=== PATIENT | female | born 1930 | race Caucasian/White ===

== ENCOUNTER 2017-11-29 13:04 | Observation (INO) | payer MEDICARE ==
[~2017-11-29] VITALS: Ht 170.2 cm; Wt 58.1 kg
[~2017-11-29 13:04] MED LIST: ASPIR-MOX 325325 M1 PO; ASPIRIN81 MG PO; BREO PO; DUONEB 0.5 MG-33 ML; HYDROCODON-ACE1 EACH PO; LEVAQUIN500 MG PO; LOSARTAN POTASS25 MG PO; LOSARTAN-HCTZ1 EAC2 PO; PANTOPRAZOLE SO40 MG PO; PROBIOTIC & AC1 EACH PO; TRAMADOL HCL50 MG PO; TYLENOL 4 PO; VITAMIN D1000 UNI1 PO; Z.0.ATENOLOL25 MG PO; Z.0.GABAPENTIN300 MG PO; Z.0.PLAVIX75 MG PO; Z.0.PRILOSEC OTC20 M PO; duoneb; nebulizer
[2017-11-29] MEDS ORDERED: ASPIRIN 81 MG CHEW TAB PO ONE ×2 (13:15→16:00)
[2017-11-29 13:38] LABS: BASOPHILS % 0.1 % (0.0-1.0); BILIRUBIN,URINE 1+ (NEGATIVE); COLOR,URINE YELLOW (YELLOW); HEMATOCRIT 32.3 % (34.2-44.1); HEMOGLOBIN 9.9 g/dL (12.0-16.0); KETONES,URINE NEGATIVE (NEGATIVE); LEUKOCYTE ESTERASE ,URINE TRACE (NEGATIVE); LYMPHOCYTES % 12.7 % (18.0-39.1); MEAN CORPUSCULAR HEMOGLOBIN 26.5 pg (28-32); MEAN CORPUSCULAR HGB CONC 30.7 g/dL (31-35); MEAN CORPUSCULAR VOLUME 86.4 fL (81-99); MONOCYTES # (AUTO) 1.4 (0.2-0.8); NEUTROPHILS # (AUTO) 12.1 (2.1-6.9); NEUTROPHILS % 77.8 % (38.7-80.0); NITRITE,URINE NEGATIVE (NEGATIVE); PLATELET COUNT 233 x10e3/uL (140-360); PROTEIN,URINE DIPSTICK NEGATIVE (NEGATIVE); RED BLOOD COUNT 3.74 x10e6/uL (3.6-5.1); RED CELL DISTRIBUTION WIDTH 12.8 % (11.7-14.4); URINE UROBILINOGEN 0.2 mg/dL (0.2 - 1)
[2017-11-29 13:39] LABS: CLARITY,URINE SL CLOUDY (CLEAR)
[2017-11-29 13:46] LABS: INR 1.15; PROTHROMBIN TIME 13.8 seconds (11.9-14.5)
[2017-11-29 13:47] LABS: PARTIAL THROMBOPLASTIN TIME 35.5 seconds (23.8-35.5)
[2017-11-29 13:52] LABS: BACTERIA,URINE FEW /HPF; EPITHELIAL CELLS,URINE MODERATE /LPF; WBC,URINE (MAN) 0-5 /HPF (0-5)
[2017-11-29 13:55] LABS: ALBUMIN 3.2 g/dL (3.5-5.0); ALBUMIN/GLOBULIN RATIO 0.8 (0.8-2.0); ANION GAP 16.5 mmol/L (8-16); CALCIUM 9.6 mg/dL (8.4-10.2); CREATININE, SERUM 2.08 mg/dL (0.57-1.11); POTASSIUM 4.5 mmol/L (3.5-5.1)
[2017-11-29 14:02] LABS: CREATINE KINASE MB 2.4 ng/mL (0-5.0)
--- NOTE | 2017-11-29 14:22 | Diagnostic Imaging Report ---
Exam: Head CT without contrast History: Possible possible stroke, left-sided paresis Comparison studies: Head CTs of 02/21/2016, in 01/13/2016. Technique: Axial images were obtained from the skull base to the vertex. Coronal and sagittal images reconstructed from the axial data. Intravenous contrast: None Findings: Scalp: No abnormalities. Bones: No fractures or aggressive lytic or blastic lesions. Nonaggressive-appearing 8 mm lytic lesion in the right parietal calvarium, possibly hemangioma. Brain sulci: Mildly prominent Ventricles: Mild compensatory dilatation. No hydrocephalus. Extra-axial spaces: No masses, no fluid collection. Parenchyma: No mass, acute hemorrhage or acute or chronic cortical vascular insults. A few scattered hypodensities in the supratentorial white matter are nonspecific but most compatible with chronic small vessel ischemic changes. Sellar/suprasellar region: No abnormalities. Craniocervical junction: Patent foramen magnum. No Chiari one malformation. Incidental findings: Atherosclerotic calcifications in the carotid siphons and intradural vertebral arteries. Bilateral lens replacements related to previous cataract surgery. Right middle turbinate nicholas bullosa, a normal anatomical variant. IMPRESSION: 1. No acute abnormalities. 2. Specifically, no mass, acute hemorrhage or acute cortical vascular insults. 3. Mild generalized volume loss and chronic microvascular ischemic changes. 4. No changes from the previous head CT of 02/21/2016. If there remains persistent concern for acute ischemia, brain MRI may further evaluate. Signed by: Dr. Patricio Ramos M.D. on 11/29/2017 2:18 PM
--- NOTE | 2017-11-29 14:34 | Diagnostic Imaging Report ---
EXAMINATION: CHEST SINGLE (PORTABLE) INDICATION: \S\SOB \S\[id number] \S\1400 \S\Y COMPARISON: 02/22/2016 FINDINGS: AP view TUBES and LINES: None. LUNGS: Lungs are well inflated. Biapical scarring. Central vascular congestion and mild interstitial edema. PLEURA: No pleural effusion or pneumothorax. HEART AND MEDIASTINUM: The cardiomediastinal silhouette is unremarkable. Aorta is calcified and tortuous. BONES AND SOFT TISSUES: No acute osseous lesion. Soft tissues are unremarkable. UPPER ABDOMEN: No free air under the diaphragm. IMPRESSION: Central vascular congestion and mild interstitial edema. Mildly increased bilateral upper lung field haziness, probably scarring. Signed by: Dr. Fili Henley MD on 11/29/2017 2:31 PM
--- NOTE | 2017-11-29 14:50 | Diagnostic Imaging Report ---
HIP LEFT 2-3 VW (+/- PELVIS) - 3 views HISTORY: Pain COMPARISON: None available. FINDINGS: Generalized demineralization limits evaluation. No definite evidence of acute displaced fracture or dislocation of the left hip. Degenerative changes of the left hip. Questionable old fracture deformity of the left inferior pubic ramus. Right hip arthroplasty. IMPRESSION: No definite evidence of acute displaced fracture or dislocation of the left hip. If there is high clinical concern for fracture, consider obtaining CT for better evaluation. Advanced degenerative changes. Right hip arthroplasty. Signed by: Dr. Fili Henley MD on 11/29/2017 2:47 PM
[2017-11-29] MEDS ORDERED: ONDANSETRON HCL INJ 2 MG/ML VIAL IV PRN (16:00)
--- OUTSIDE RECORDS SUMMARY | 2017-11-29 16:11 | XMS REPORT ---
Author Author [facility] Address Unknown Phone Unavailable Care Team Providers Care Core Fitter Name Role Phone EMILY GOMEZ Unavailable Unavailable Problems This patient has no known problems. Allergies, Adverse Reactions, Alerts This patient has no known allergies or adverse reactions. Medications This patient has no known medications. Results Test Description Test Time Test Comments Text Results Atomic Results Result Comments HIP LEFT 2-3 VW (+/- PELVIS) [place] [address] Patient Name: MERLE RIVERA MR #: [id number] : 1930 Age/Sex: 87/F Req #: [id number] Adm Physician: Ordered by: EMILY GOMEZ MD Report #: [id number] Location: ER Room/Bed: Procedure: [id number] DX/HIP LEFT 2-3 VW (+/- PELVIS) Exam Date: Exam Time: REPORT STATUS: Signed HIP LEFT 2-3 VW (+/- PELVIS) - 3 views HISTORY: Pain COMPARISON: None available. FINDINGS: Generalized demineralization limits evaluation. No definite evidence of acute displaced fracture or dislocation of the left hip. Degenerative changes of the left hip. Questionable old fracture deformity of the left inferior pubic ramus. Right hip arthroplasty. IMPRESSION: No definite evidence of acute displaced fracture or dislocation of the left hip. If there is high clinical concern for fracture, consider obtaining CT for better evaluation. Advanced degenerative changes. Right hip arthroplasty. Signed by: Dr. Fili Ball MD on 11/29/2017 2:47 PM Dictated By: FILI BALL MD 46 Transcribed By: CARLOZ on 11/29/171446 COPY TO: EMILY GOMEZ MD CT BRAIN WO [place] [address] Patient Name: MERLE RIVERA MR #: [id number] : 1930 Age/Sex: 87/F Req # : [id number] Adm Physician: Ordered by: EMILY GOMEZ MD Report #: [id number] Location: Room/Bed: Procedure: [id number] CT/CT BRAIN WO Exam Date: Exam Time: REPORT STATUS: Signed Exam: Head CT without contrast History: Possible possible stroke, left-sided paresis Comparison studies: Head CTs of 02/21/2016, in 2015. Technique: Axial images were obtained from the skull base to the vertex. Coronal and sagittal images reconstructed from the axial data. Intravenous contrast: None Findings: Scalp: No abnormalities. Bones : No fractures or aggressive lytic or blastic lesions. Nonaggressive- appearing 8 mm lytic lesion in the right parietal calvarium, possibly hemangioma. Brain sulci: Mildly prominent Ventricles: Mild compensatory dilatation. No hydrocephalus. Extra-axial spaces: No masses, no fluid collection. Parenchyma: No mass, acute hemorrhage or acute or chronic cortical vascular insults. A few scattered hypodensities in the supratentorial white matter are nonspecific but most compatible with chronic small vessel ischemic changes. Sellar/suprasellar region: No abnormalities. Craniocervical junction: Patent foramen magnum. No Chiari one malformation. Incidental findings: Atherosclerotic calcifications in the carotid siphons and intradural vertebral arteries. Bilateral lens replacements related to previous cataract surgery. Right middle turbinate nicholas bullosa, a normal anatomical variant. IMPRESSION: 1. No acute abnormalities. 2. Specifically, no mass, acute hemorrhage or acute cortical vascular insults. 3. Mild generalized volume loss and chronic microvascular ischemic changes. 4. No changes from the previous head CT of 02/21/2016. If there remains persistent concern for acute ischemia, brain MRI may further evaluate. Signed by: Dr. Wan Ramos M.D. on 11/29/2017 2:18 PM Dictated By: WAN RAMOS MD 1418 Transcribed By: CARLOZ on 11/29/17 1418 COPY TO: EMILY GOMEZ MD CHEST SINGLE (PORTABLE) [place] [address] Patient Name: MERLE RIVERA MR #: [id number] : 1930 Age/Sex: 87/F Req #: [id number] Adm Physician: Ordered by: EMILY GOMEZ MD Report #: [id number] Location: ER Room/Bed: Procedure: [id number] DX/CHEST SINGLE (PORTABLE) Exam Date: 11/29/17 Exam Time: 1400 REPORT STATUS: Signed EXAMINATION: CHEST SINGLE (PORTABLE) INDICATION: COMPARISON: 02/22/2016 FINDINGS: AP view TUBES and LINES: None. LUNGS: Lungs are well inflated. Biapical scarring. Central vascular congestion and mild interstitial edema. PLEURA: No pleural effusion or pneumothorax. HEART AND MEDIASTINUM: The cardiomediastinal silhouette is unremarkable. Aorta is calcified and tortuous. BONES AND SOFT TISSUES : No acute osseous lesion. Soft tissues are unremarkable. UPPER ABDOMEN : No free air under the diaphragm. IMPRESSION: Central vascular congestion and mild interstitial edema. Mildly increased bilateral upper lung field haziness, probably scarring. Signed by: Dr. Fili Ball MD on 2:31 PM Dictated By: FILI BALL MD 1431 Transcribed By: CARLOZ on 11/29/17 1431 COPY TO: EMILY GOMEZ MD
[2017-11-29 16:52] VITALS: BP 140/66
[2017-11-29 17:00] VITALS: BP 140/66
[2017-11-29] MEDS ORDERED: ASPIRIN81 MG PO (17:40)
[2017-11-29] MEDS ORDERED: HYDROCHLOROTH12.5 M1 PO (17:40)
[2017-11-29] MEDS ORDERED: HYDRALAZINE HCL 20 MG/ML VIAL IV PRN (18:00)
[2017-11-29] MEDS: SODIUM CHLORIDE 0.9% 1000ML 1,000 ML IV SCH ×2 (18:16→20:42)
--- NOTE | 2017-11-29 19:16 | Diagnostic Imaging Report ---
EXAM: Renal Ultrasound INDICATION: \S\ACOSTA \S\N COMPARISON: None TECHNIQUE: Transverse and longitudinal images of the kidneys and bladder were obtained. FINDINGS: Right Kidney: Size: 9.7 cm Echogenicity: Increased Parenchymal thickness: Normal Collecting system: No hydronephrosis Stones: None Cyst/Mass: None Left Kidney: Size: 10.1 cm Echogenicity: Increased Parenchymal thickness: Normal Collecting system: No hydronephrosis Stones: None Cyst/Mass: None Bladder: Decompressed by Torres catheter in place. IMPRESSION: Increased renal parenchymal echogenicity, suggestive of medical renal disease. Otherwise, unremarkable. Signed by: Dr. Fili Henley MD on 11/29/2017 7:12 PM
[2017-11-29 20:00] VITALS: BP 140/66
[2017-11-29 20:10] VITALS: BP 126/59
[2017-11-29] MEDS: ATENOLOL 50 MG TAB PO SCH (20:40)
[2017-11-29] MEDS ORDERED: ACETAMINOPHEN/CODEINE 300MG - 30MG TAB PO PRN (21:00)
[2017-11-30] VITALS (8 sets, daily range): BP systolic 113–167; BP diastolic 58–77
[2017-11-30 00:53] LABS: CREATINE KINASE MB 1.6 ng/mL (0-5.0)
[2017-11-30 06:12] LABS: BASOPHILS % 0.2 % (0.0-1.0); EOSINOPHILS # (AUTO) 0.1 (0.0-0.4); EOSINOPHILS % 0.8 % (0.0-6.0); HEMATOCRIT 27.7 % (34.2-44.1); HEMOGLOBIN 8.7 g/dL (12.0-16.0); LYMPHOCYTES # (AUTO) 1.3 (1.0-3.2); MEAN CORPUSCULAR HEMOGLOBIN 26.9 pg (28-32); MEAN CORPUSCULAR HGB CONC 31.4 g/dL (31-35); MEAN CORPUSCULAR VOLUME 85.8 fL (81-99); MONOCYTES % 9.9 % (4.4-11.3); NEUTROPHILS # (AUTO) 7.6 (2.1-6.9); NEUTROPHILS % 75.8 % (38.7-80.0); PLATELET COUNT 164 x10e3/uL (140-360); RED BLOOD COUNT 3.23 x10e6/uL (3.6-5.1); RED CELL DISTRIBUTION WIDTH 12.6 % (11.7-14.4)
[2017-11-30 06:34] LABS: ANION GAP 11.2 mmol/L (8-16); CALCIUM 9.1 mg/dL (8.4-10.2); CHOL/HDL RATIO 2.4 (3.0-3.6); CREATININE, SERUM 1.01 mg/dL (0.57-1.11); POTASSIUM 4.2 mmol/L (3.5-5.1)
[2017-11-30 06:54] LABS: CREATINE KINASE MB 1.5 ng/mL (0-5.0)
[2017-11-30] MEDS: ACETAMINOPHEN/CODEINE 300MG - 30MG TAB PO SCH ×2 (07:33→20:38)
[2017-11-30] MEDS: LOSARTAN POTASSIUM 25 MG TAB PO SCH (08:49)
[2017-11-30] MEDS: SODIUM CHLORIDE 0.9% 1000ML 1,000 ML IV SCH (08:49)
[2017-11-30] MEDS: ASPIRIN 81 MG ENTERIC COATED PO SCH (08:49)
[2017-11-30] MEDS: LACTOBACILLUS ACIDOPHILUS CAPSULE PO SCH (08:49)
[2017-11-30] MEDS: CLOPIDOGREL BISULFATE 75 MG TAB PO SCH (08:49)
[2017-11-30] MEDS: PANTOPRAZOLE SOD 40 MG TABEC PO SCH (08:50)
[2017-11-30] MEDS: GABAPENTIN 300 MG CAP PO SCH ×3 (13:03→20:37)
--- NOTE | 2017-11-30 13:07 | History and Physical ---
CHIEF COMPLAINT: Lightheadedness, dizziness, fall. HPI: This is an 87-year-old female with history of peripheral neuropathy, taking gabapentin, who complained of diarrhea for the last 1 day. The patient reports she went to the bathroom yesterday and had several bouts of diarrhea, nonbloody, nonfoul-smelling. When she got up from the toilet, she got very lightheaded and fell over. The patient also reports that her primary care physician recently started her on some oral Lasix due to ankle swelling. Of note, she also endorses that she does not drink enough fluids at home. The patient reports that she got lightheaded when this occurred and fell on her left elbow and hip area. All imaging studies have been found to be negative. The patient is currently doing well with no other complaints. She denies any chest pain, palpitations, any history of seizures or any loss of consciousness. The patient was seen and evaluated at bedside on the medical floor, currently doing well with no other complaints. REVIEW OF SYSTEMS: Pertinent positives: Lightheadedness, dizziness, fall. Pertinent negatives: Denies any chest pain, palpitations, nausea, vomiting, diarrhea, dysuria, hematuria, frequency, urgency, abdominal pain, headache, shortness of breath, or any other complaints. The rest of the 14-point review of systems have been reviewed with the patient and are negative. ALLERGIES: NO KNOWN DRUG ALLERGIES. HOME MEDICATIONS 1. Aspirin 81 mg daily. 2. Gabapentin 300 mg p.o. q.i.d. 3. Hydrochlorothiazide. PAST MEDICAL HISTORY: Peripheral neuropathy, hypertension, generalized weakness. PAST SURGICAL HISTORY: None. FAMILY HISTORY: Hypertension, diabetes. SOCIAL HISTORY: She lives with family. Denies drugs, alcohol or any smoking history. VITAL SIGNS: Temperature is 97.8, pulse 71, respiratory rate 16, blood pressure 129/58, pulse ox 98% on room air. LAB FINDINGS: White count 10, hemoglobin 8.7, hematocrit 27, platelets 164. Coagulations are normal. Chemistries: Sodium 138, potassium 4.2, chloride 101, bicarb 30, anion gap 11, BUN 23, creatinine 1.0. On admission it was 2.0. Glucose 86, calcium 9.1. LFTs are normal. Troponins were negative times 3. Albumin was 3.2, LDL 64. Urinalysis was negative. MICROBIOLOGY: None. IMAGING STUDIES: Renal ultrasound showed some increased renal parenchymal echogenicity. Right kidney is 9.7 cm, and the left kidney is 10.1 cm. Chest x-ray showed some central vascular congestion and mild interstitial edema. CT brain: No acute abnormality. Specifically, no mass, acute hemorrhage or acute cortical vascular insults. Otherwise, negative CT brain. Hip x-ray: No definite evidence of acute displaced fracture or dislocation of the left hip. PHYSICAL EXAMINATION GENERAL: No acute distress. Alert and oriented times 3. Cooperative on exam. HEENT: Head is normocephalic and atraumatic. Eyes: Pupils are equal, round and reactive to light bilaterally. The extraocular movements are intact bilaterally. NECK: Supple with good range of motion. Throat: No evidence of any erythema or exudate. The posterior pharynx has poor dentition. PULMONARY: Clear to auscultation bilaterally. No wheezing, no rales, no rhonchi. No crackles appreciated. CARDIOVASCULAR: Positive S1 and S2. No murmurs, rubs or gallops appreciated. ABDOMEN: Soft, nondistended and nontender to palpation. Bowel sounds are present. MUSCULOSKELETAL: Strength bilaterally 5/5 throughout. No evidence of any musculoskeletal deficit on examination. No weakness appreciated. NEUROLOGIC: Cranial nerves II through XII were grossly intact. No evidence of any neurological deficit on exam. SKIN: Intact. Warm to touch. Good capillary refill. PSYCHIATRIC: Normal affect and mood. EXTREMITIES: No edema. Good range of motion throughout. IMPRESSION 1. Syncopal episode, likely secondary to dehydration. 2. Acute kidney injury secondary to prerenal azotemia from dehydration. 3. Dehydration due to decreased oral intake and thiazide diuretic. 4. Hyponatremia. 5. Peripheral neuropathy. PLAN: At this time, her CT brain was negative. All imaging studies were found to be negative at this time. The patient clearly describes having hypovolemia due to diarrhea and thiazide diuretic. Also, was taking Lasix at home, likely leading to her underlying volume depletion and syncopal fall. Currently, she denies any lightheadedness or dizziness and feels great with no other issues. We will get an MRI of the brain at this time. Will continue with low-dose IV fluids at this time. Her creatinine did improve after fluid hydration. Sodium improved as well. Has negative troponins. Will get PT and OT eval. Monitor very closely. Will continue with gabapentin at the same dose. Also, gabapentin could be playing a role in her dizziness as she had prerenal azotemia with elevated creatinine likely leading to her syncopal fall as well. At this time, we will continue to follow and will order labs in the morning. Once everything has been cleared, likely discharge home tomorrow once MRI has been performed and is negative. Job#: [id number]
[2017-11-30] MEDS: ATENOLOL 50 MG TAB PO SCH (20:37)
[2017-12-01] VITALS: BP 143/65
[2017-12-01 04:00] VITALS: BP 171/74
[2017-12-01] MEDS: SODIUM CHLORIDE 0.9% 1000ML 1,000 ML IV SCH (05:44)
[2017-12-01 06:40] LABS: BASOPHILS % 0.2 % (0.0-1.0); EOSINOPHILS % 0.4 % (0.0-6.0); HEMATOCRIT 29.1 % (34.2-44.1); MEAN CORPUSCULAR HEMOGLOBIN 26.5 pg (28-32); MEAN CORPUSCULAR HGB CONC 30.9 g/dL (31-35); MEAN CORPUSCULAR VOLUME 85.6 fL (81-99); MONOCYTES # (AUTO) 0.9 (0.2-0.8); MONOCYTES % 8.9 % (4.4-11.3); NEUTROPHILS # (AUTO) 7.8 (2.1-6.9); NEUTROPHILS % 80.1 % (38.7-80.0); PLATELET COUNT 195 x10e3/uL (140-360); RED CELL DISTRIBUTION WIDTH 12.5 % (11.7-14.4)
[2017-12-01 06:59] LABS: ANION GAP 11.3 mmol/L (8-16); BLOOD UREA NITROGEN 14 mg/dL (7-26); BUN/CREATININE RATIO 18 (6-25); CALCIUM 9.2 mg/dL (8.4-10.2); CARBON DIOXIDE 29 mmol/L (22-29); CHLORIDE 102 mmol/L (98-107); CREATININE, SERUM 0.78 mg/dL (0.57-1.11); EST GLOMERULAR FILTRATION RATE > 60 ML/MIN (60-); GLUCOSE 113 mg/dL (74-118); POTASSIUM 4.3 mmol/L (3.5-5.1); SODIUM 138 mmol/L (136-145)
[2017-12-01 08:07] VITALS: BP 178/77
[2017-12-01] MEDS: PANTOPRAZOLE SOD 40 MG TABEC PO SCH (08:22)
[2017-12-01] MEDS: ASPIRIN 81 MG ENTERIC COATED PO SCH (08:23)
[2017-12-01] MEDS: ACETAMINOPHEN/CODEINE 300MG - 30MG TAB PO SCH (08:23)
[2017-12-01] MEDS: CLOPIDOGREL BISULFATE 75 MG TAB PO SCH (08:23)
[2017-12-01] MEDS: GABAPENTIN 300 MG CAP PO SCH ×2 (08:23→12:10)
[2017-12-01] MEDS: LOSARTAN POTASSIUM 25 MG TAB PO SCH (08:23)
[2017-12-01] MEDS: LACTOBACILLUS ACIDOPHILUS CAPSULE PO SCH (08:23)
[2017-12-01] MEDS ORDERED: ASPIRIN 81 MG CHEW TAB PO SCH (09:00)
[2017-12-01] MEDS ORDERED: LOSARTAN POTASSIUM 100 MG TAB PO ONE (11:15)
[2017-12-01] MEDS ORDERED: LOSARTAN POTASSIUM 100 MG TAB PO SCH (11:17)
[2017-12-01 12:00] VITALS: BP 176/74
--- NOTE | 2017-12-01 12:37 | Discharge Summary ---
DATE OF : 1930 FINAL DISCHARGE DIAGNOSES 1. Syncope likely secondary to dehydration from diarrhea, decreased oral intake, and diuretic usage. 2. Acute kidney injury secondary to prerenal azotemic from dehydration. 3. Mild hyponatremia - resolved. 4. Peripheral neuropathy. CONSULTANTS: None. VITAL SIGNS: Temperature is 97.2, pulse 70, respiratory rate is 16, blood pressure 143/65, and pulse ox is 98%. LAB FINDINGS: Show white count 9.6, hemoglobin 9, hematocrit is 29, platelets of 195. Coagulation was normal. Chemistries; sodium 138, potassium 4.3, chloride 102, bicarb 20, anion gap of 11, BUN is 14. Creatinine on admission was 2.0, then 1.0, then 0.78. Glucose is 113. LFTs were normal. Patient's troponin was negative times 3. Albumin was 3.2. LDL was 64. Urinalysis was negative. MICROBIOLOGY: None. IMAGING STUDIES: Renal ultrasound was performed, which showed some medical renal disease. No other findings seen. No obstruction or hydronephrosis. Chest x-ray shows some central vascular congestion with mild interstitial edema. CT brain showed no acute abnormality, was a negative CT of the head. Hip x-ray showed no definite evidence of acute displaced fracture or dislocation of the left hip. HOSPITAL COURSE: This is an 87-year-old female who came into the ED after having a syncopal episode at home. Patient reports she was in the bathroom on the toilet, having several bouts of diarrhea and when she stood up she got lightheaded and fell over on her left hip. Patient was brought in via EMS. Imaging studies were negative for any hip fracture. CT brain was negative as well. On further review, the patient has been taking an oral diuretic as well as decreased oral fluid intake as well as diarrhea likely led to her underlying syncopal episode. She was found to be dehydrated on examination. She did have acute kidney injury with a creatinine of 2, which trended down to normal at 0.78 prior to discharge home. Patient was admitted and started on IV fluids. Patient refused MRI of the brain and I discussed the reasoning for MRI of the brain, risks and benefits. Patient still refuses MRI of the brain at this time. Patient was back to normal baseline with no other issues. There is no focal neurological deficit on exam. She worked with PT and OT, did very well. She does have a home walker. On discharge, vital signs stable. Labs reviewed and stable. Patient was seen, evaluated, and examined thoroughly on the day of discharge. No other complaints. Patient verbalized understanding and agrees to plan of care to follow up accordingly with her primary care physician in 1 week. I also discussed with the family about drinking more fluids at home as she does not drink enough and also, I discussed with them to use the Lasix as needed when she notices lower extremity edema. They verbalized understanding and agreed with plan of care. MEDICATIONS: See med reconciliation form including Cipro 500 mg p.o. b.i.d. times 3 days for possible underlying UTI. DISPOSITION: To home. CONDITION: Stable. DIET: Heart-healthy. FOLLOWUP: With her primary care physician in 1 week for post-hospital followup. In the event of any worsening symptoms, the patient advised to come back to the ED for further evaluation. Discharge summary took greater than 35 minutes. TM WOLFE MD Job#: [id number] PAT
== END 2017-12-01 12:23 | disposition home or self-care (01) ==
LOC: ER 13:04 → ERHOLD 16:07 → IMCU 16:10
PROVIDERS: ADMIT Internal Medicine; ATTEND Internal Medicine
DX: R55 Syncope and collapse (principal); N17.9 Acute kidney failure, unspecified; D72.829 Elevated white blood cell count, unspecified; Z91.81 History of falling; E86.0 Dehydration; E87.1 Hypo-osmolality and hyponatremia; G62.9 Polyneuropathy, unspecified; R19.7 Diarrhea, unspecified; W18.39XA Other fall on same level, initial encounter; Y93.89 Activity, other specified; Y92.012 Bathroom of single-family (private) house as the place of occurrence of the external cause
CPT/HCPCS: 36415; 51700; 70450; 71045; 76770; 80048; 80053; 80061; 81001; 82550; 82553; 83880; 84484; 85025; 85610; 85730; 93005; 93880; G0378; J7030

== ENCOUNTER 2017-12-13 09:01 | Inpatient (IN) | payer MEDICARE ==
[~2017-12-13] VITALS: Ht 170.2 cm; Wt 59.9 kg
[~2017-12-13 09:01] MED LIST changes: +HYDROCHLOROTH12.5 M1 PO
--- OUTSIDE RECORDS SUMMARY | 2017-12-13 09:04 | XMS REPORT | Continuity of Care Document ---
Author Author [facility] Organization [facility] Address [address] [place] [address] Phone Unavailable Care Team Providers Care Poultry Offal Icer Name Role Phone AMAURI ORTEGA MD PCP Insurance Providers Guarantor ConnerSelene cash Address [address] [place] [address] Email PTDECLINED Payer [facility] [employer] Policy Number [id number] Subscriber's Name Selene Conner Relationship 18 Self / Same As Patient Group Number [id number] Group Name RETIRED Effective Date 15 Expiration Date 78 Advance Directives Directive Response Recorded Date/Time Does the patient have an advance directive? No 11/29/17 4:52pm If yes, is advance directive on file with [facility]? No 11/29/17 4:52pm If not on file with [facility] will patient provide a copy? No 11/29/17 4:52pm Do you have a Directive to Physician? No 11/29/17 3:55pm Do you have a Medical Power of [place]ess[place] Cleaner? No 11/29/17 3:55pm Do you have an out of hospital Do Not Resuscitate Order? No 11/29/17 3:55pm Do you have any special needs we should be aware of? No 11/29/17 3:55pm Do you have a support person here with you today? Yes 11/29/17 3:55pm Did patient receive Notice of Privacy Practices? Yes 11/29/17 3:55pm Did patient receive patient rights and responsibilities? Yes 11/29/17 3:55pm Problems Medical Problem Onset Date Status Elevation of cardiac enzymes 02/21/2016 Acute Hyponatremia 02/21/2016 Acute Weakness 02/21/2016 Acute Medications Current Home Medications Medication Dose Units Route Directions Days Qty Instructions Start Date Aspirin 81 Mg Tab.chew 1 Tab Oral Daily Atenolol 25 Mg Tablet 50 Mg Oral Daily Gabapentin 300 Mg Capsule 300 Mg Oral Four Times Daily Hydrochlorothiazide 12.5 Mg Capsule 1 Cap Oral Daily Lactobac Cmb #3/Fos/Pantethine (Probiotic & Acidophilus Cap) 1 Each Capsule 1 Tab Oral Daily Losartan Potassium 25 Mg Tablet 50 Mg Oral Daily Pantoprazole Sodium (Protonix) 40 Mg Tablet.dr 40 Mg Oral Daily Tylenol 4 1 1 Tab Oral Twice A Day Past Home Medications Medication Directions Ordered Status Albuterol/Ipratropium (Duoneb 0.5 Mg-3 Mg/3 Ml Soln) 3 Ml Inha, Discontinued Aspirin 81 Mg Tab.chew, 81 Mg Oral Daily Discontinued Aspirin/Calcium Carbonate/Mag (Aspir-Mox 325 Mg Tablet) 325 Mg Tablet, 325 Mg Oral Discontinued Breo , 2 Tab Oral Daily Discontinued Cholecalciferol (Vitamin D3) (Vitamin D) 1,000 Unit Tablet, 300 Unit Oral Daily Discontinued Clopidogrel Bisulfate (Plavix) 75 Mg Tablet, 75 Mg Oral Discontinued Duoneb , Discontinued Hydrocodone Bit/Acetaminophen (Hydrocodon-Acetaminophen 5-500) 1 Each Capsule, 5 - 500 Mg Oral Every 4 Hours as needed Discontinued Levofloxacin (Levaquin) 500 Mg Tablet, 500 Mg Oral Daily Discontinued Losartan/Hydrochlorothiazide (Losartan-Hctz 100-12.5 Mg Tab) 1 Each Tablet, 1 Oral Daily Discontinued Nebulizer , Discontinued Omeprazole Magnesium (Prilosec Otc) 20 Mg Tablet.dr, 20 Mg Oral Daily Discontinued Tramadol Hcl 50 Mg Tablet, 50 Mg Oral 1-2 Times Daily Discontinued Social History Social History Problem Response Recorded Date/Time Onset Date Status Hx Psychiatric Problems No 11/29/2017 4:52pm Not Applicable Not Applicable Hx Eating Disorder No 11/29/2017 4:52pm Not Applicable Not Applicable Hx Substance Use Disorder No 11/29/2017 4:52pm Not Applicable Not Applicable Hx Depression No 11/29/2017 4:52pm Not Applicable Not Applicable Hx Alcohol Use No 11/29/2017 4:52pm Not Applicable Not Applicable Hx Substance Use Treatment No 11/29/2017 4:52pm Not Applicable Not Applicable Hx Physical Abuse No 11/29/2017 4:52pm Not Applicable Not Applicable Smoking Status Start Date Stop Date Former smoker Hospital Discharge Instructions No hospital discharge instruction information available. Plan of Care Discharge Date 12/01/17 12:23pm Disposition HOME, SELF-CARE Instructions/Education Provided Dehydration - Adult Prescriptions See Medication Section Additional Instructions/Education Follow-up with primary care provider next week. Functional Status Query Response Date Recorded Assistive Devices None November 29, 2017 5:00pm Ambulation Ability Standby Assistance November 29, 2017 5:00pm Toileting Ability Minimum Assistance December 01, 2017 8:54am Allergies, Adverse Reactions, Alerts No known allergies. Immunizations No immunization information available. Vital Signs Acute Vital Signs Vital Response Date/Time Temperature (Fahrenheit) 96.8 degrees F (97.6 - 99.5) 12/01/2017 12:00pm Pulse Pulse Rate (adult) 70 bpm (60 - 90) 12/01/2017 12:00pm Respiratory Rate 16 bpm (12 - 24) 12/01/2017 12:00pm Blood Pressure 176/74 mm Hg 12/01/2017 12:00pm Height 5 ft 7 in 11/29/2017 1:15pm Weight 128 lb 11/29/2017 4:52pm Body Mass Index 20.0 kg/m^2 11/29/2017 4:52pm Results Laboratory Results Test Name Result Units Flags Reference Collection Date/Time Result Date/ Time Comments White Blood Count 9.68 x10e3/uL 4.8-10.8 12/01/2017 6:15am 12/01/2017 6 :50am Red Blood Count 3.40 x10e6/uL L 3.6-5.1 12/01/2017 6:15am 12/01/2017 6: 50am Hemoglobin 9.0 g/dL L 12.0-16.0 12/01/2017 6:1512/01/2017 6:50am Hematocrit 29.1 % L 34.2-44.1 12/01/2017 6:1512/01/2017 6:50am Mean Corpuscular Volume 85.6 fL 81-99 12/01/2017 6:1512/01/2017 6: 50am Mean Corpuscular Hemoglobin 26.5 pg L 28-32 12/01/2017 6:152017 6:50am Mean Corpuscular Hemoglobin Concent 30.9 g/dL L 31-35 12/01/2017 6:1512/01/2017 6:50am Red Cell Distribution Width 12.5 % 11.7-14.4 12/01/2017 6:152017 6:50am Platelet Count 195 x10e3/uL 140-360 12/01/2017 6:1512/01/2017 6: 50am Neutrophils (%) (Auto) 80.1 % H 38.7-80.0 12/01/2017 6:1512/01/2017 6 :50am Lymphocytes (%) (Auto) 10.0 % L 18.0-39.1 12/01/2017 6:1512/01/2017 6 :50am Monocytes (%) (Auto) 8.9 % 4.4-11.3 12/01/2017 6:1512/01/2017 6: 50am Eosinophils (%) (Auto) 0.4 % 0.0-6.0 12/01/2017 6:1512/01/2017 6: 50am Basophils (%) (Auto) 0.2 % 0.0-1.0 12/01/2017 6:1512/01/2017 6:50am IM GRANULOCYTES % 0.4 % 0.0-1.0 12/01/2017 6:1512/01/2017 6:50am Neutrophils # (Auto) 7.8 H 2.1-6.9 12/01/2017 6:1512/01/2017 6: 50am Lymphocytes # (Auto) 1.0 1.0-3.2 12/01/2017 6:1512/01/2017 6:50am Monocytes # (Auto) 0.9 H 0.2-0.8 12/01/2017 6:15am 12/01/2017 6:50am Eosinophils # (Auto) 0.0 0.0-0.4 12/01/2017 6:15am 12/01/2017 6:50am Basophils # (Auto) 0.0 0.0-0.1 12/01/2017 6:15am 12/01/2017 6:50am Absolute Immature Granulocyte (auto 0.04 x10e3/uL 0-0.1 12/01/2017 6: 15am 12/01/2017 6:50am Prothrombin Time 13.8 seconds 11.9-14.5 11/29/2017 1:30pm 11/29/2017 1: 47pm Prothromb Time International Ratio 1.15 11/29/2017 1:30pm 2017 1:47pm Oral Anticoagulant Therapy INR Values: 1. Low Intensity Therapy 1.5 - 2.0 2. Moderate Intensity Therapy 2.0 - 3.0 3. High Intensity Therapy(1) 2.5 - 3.5 4. High Intensity Therapy(2) 3.0 - 4.0 5. Panic Value INR > 5.0 Activated Partial Thromboplast Time 35.5 seconds 23.8-35.5 11/29/2017 1: 30pm 11/29/2017 1:47pm Urine Color YELLOW YELLOW 11/29/2017 1:30pm 11/29/2017 1:39pm Urine Clarity SL CLOUDY CLEAR 11/29/2017 1:30pm 11/29/2017 1:39pm Urine Specific [place] 1.025 1.010-1.025 11/29/2017 1:30pm 2017 1:39pm Urine pH 5 5 - 7 11/29/2017 1:30pm 11/29/2017 1:39pm Urine Leukocyte Esterase TRACE H NEGATIVE 11/29/2017 1:30pm 2017 1:39pm Urine Nitrite NEGATIVE NEGATIVE 11/29/2017 1:30pm 11/29/2017 1:39pm Urine Protein NEGATIVE NEGATIVE 11/29/2017 1:30pm 11/29/2017 1:39pm Urine Glucose (UA) NEGATIVE NEGATIVE 11/29/2017 1:30pm 11/29/2017 1: 39pm Urine Ketones NEGATIVE NEGATIVE 11/29/2017 1:30pm 11/29/2017 1:39pm Urine Urobilinogen 0.2 mg/dL 0.2 - 1 11/29/2017 1:30pm 11/29/2017 1: 39pm Urine Bilirubin 1+ H NEGATIVE 11/29/2017 1:30pm 11/29/2017 1:39pm Urine Blood NEGATIVE NEGATIVE 11/29/2017 1:30pm 11/29/2017 1:39pm Urine WBC 0-5 /HPF 0-5 11/29/2017 1:30pm 11/29/2017 1:52pm Urine RBC NONE /HPF 0-5 11/29/2017 1:30pm 11/29/2017 1:52pm Urine Bacteria FEW /HPF NONE 11/29/2017 1:30pm 11/29/2017 1:52pm Urine Epithelial Cells MODERATE /LPF NONE 11/29/2017 1:30pm 11/29/2017 1:52pm Sodium Level 138 mmol/L 136-145 12/01/2017 6:15am 12/01/2017 7:16am Potassium Level 4.3 mmol/L 3.5-5.1 12/01/2017 6:15am 12/01/2017 7:16am Chloride Level 102 mmol/L 98-107 12/01/2017 6:15am 12/01/2017 7:16am Carbon Dioxide Level 29 mmol/L 22-29 12/01/2017 6:15am 12/01/2017 7: 16am Anion Gap 11.3 mmol/L 8-16 12/01/2017 6:15am 12/01/2017 7:16am Blood Urea Nitrogen 14 mg/dL 7-26 12/01/2017 6:15am 12/01/2017 7:16am Creatinine 0.78 mg/dL 0.57-1.11 12/01/2017 6:15am 12/01/2017 7:16am BUN/Creatinine Ratio 18 6-25 12/01/2017 6:15am 12/01/2017 7:16am Estimat Glomerular Filtration Rate > 60 ML/MIN 60- 12/01/2017 6:15am 7:16am Ranges were taken from the National Kidney Disease Education Program and the National Kid[employer] Foundation literature. Reference ranges: 60 or greater: Normal 16-59 (for 3 consecutive months): Chronic kidney disease 15 or less: Kidney failure Glucose Level 113 mg/dL 74-118 12/01/2017 6:15am 12/01/2017 7:16am Calcium Level 9.2 mg/dL 8.4-10.2 12/01/2017 6:15am 12/01/2017 7:16am Total Bilirubin 0.8 mg/dL 0.2-1.2 11/29/2017 1:30pm 11/29/2017 1:58pm Aspartate Amino Transf (AST/SGOT) 20 IU/L 5-34 11/29/2017 1:30pm 2017 1:58pm Alanine Aminotransferase (ALT/SGPT) 8 IU/L 0-55 11/29/2017 1:30pm 11/29 1:58pm Total Protein 7.3 g/dL 6.5-8.1 11/29/2017 1:30pm 11/29/2017 1:58pm Albumin 3.2 g/dL L 3.5-5.0 11/29/2017 1:30pm 11/29/2017 1:58pm Globulin 4.1 g/dL H 2.3-3.5 11/29/2017 1:30pm 11/29/2017 1:58pm Albumin/Globulin Ratio 0.8 0.8-2.0 11/29/2017 1:30pm 11/29/2017 1: 58pm Alkaline Phosphatase 90 IU/L 40-150 11/29/2017 1:30pm 11/29/2017 1: 58pm Triglycerides Level 59 MG/DL 0-149 11/30/2017 6:00am 11/30/2017 6:39am Cholesterol Level 131 MD/DL 0-199 11/30/2017 6:00am 11/30/2017 6:39am Less than 200 mg/dL Low Risk 201 - 239 mg/dL Borderline Risk 240 mg/dl and greater High Risk LDL Cholesterol 64 MG/DL 60-130 11/30/2017 6:00am 11/30/2017 6:39am HDL Cholesterol 55 MG/DL 40-60 11/30/2017 6:00am 11/30/2017 6:39am Cholesterol/HDL Ratio 2.4 L 3.0-3.6 11/30/2017 6:00am 11/30/2017 6: 39am B-Type Natriuretic Peptide 96.3 pg/mL 0-100 11/29/2017 1:30pm 2017 3:51pm Creatine Kinase 55 IU/L 29-168 11/30/2017 6:00am 11/30/2017 6:52am Creatine Kinase MB 1.50 ng/mL 0-5.0 11/30/2017 6:00am 11/30/2017 6: 59am Troponin I 0.042 ng/mL 0-0.300 11/30/2017 6:00am 11/30/2017 6:59am Procedures Procedure Status Date Provider(s) X-ray of chest, two views Active 04/07/17 LO COOPER MD Computed tomography of abdomen and pelvis with contrast Active 04/09/17 LO COOPER MD Computed tomography of brain without radiopaque contrast Active 11/29/17 EMILY GOMEZ MD Ultrasound, renal Active 11/29/17 EMILY GOMEZ MD Encounters Encounter Location Arrival/Admit Date Discharge/Depart Date Attending Provider Discharged Inpatient (obs) [facility] 11/29/17 4:07pm 09/08 12:23pm MT WOLFE MD Registered Surgical Day Care [facility] 04/09/17 6:56am LO COOPER MD
[2017-12-13] MEDS ORDERED: BREO ELLIPTA INH (09:15)
[2017-12-13] MEDS ORDERED: LINZESS PO (09:15)
[2017-12-13] MEDS ORDERED: SODIUM CHLORIDE 0.9% 500ML 500 ML IV ONE (10:00)
[2017-12-13 10:02] LABS: BASOPHILS # (AUTO) 0.1 (0.0-0.1); BASOPHILS % 0.2 % (0.0-1.0); BILIRUBIN,URINE NEGATIVE (NEGATIVE); HEMATOCRIT 26.9 % (34.2-44.1); HEMOGLOBIN 8.5 g/dL (12.0-16.0); KETONES,URINE NEGATIVE (NEGATIVE); LEUKOCYTE ESTERASE ,URINE 2+ (NEGATIVE); LYMPHOCYTES # (AUTO) 0.7 (1.0-3.2); LYMPHOCYTES % 3.2 % (18.0-39.1); MEAN CORPUSCULAR HEMOGLOBIN 26.6 pg (28-32); MEAN CORPUSCULAR HGB CONC 31.6 g/dL (31-35); MEAN CORPUSCULAR VOLUME 84.3 fL (81-99); MONOCYTES # (AUTO) 1.5 (0.2-0.8); MONOCYTES % 7.2 % (4.4-11.3); NEUTROPHILS % 88.1 % (38.7-80.0); PLATELET COUNT 370 x10e3/uL (140-360); RED BLOOD COUNT 3.19 x10e6/uL (3.6-5.1); RED CELL DISTRIBUTION WIDTH 12.8 % (11.7-14.4); URINE UROBILINOGEN 0.2 mg/dL (0.2 - 1)
[2017-12-13] MEDS ORDERED: ACETAMINOPHEN 325 MG TAB ONE (10:03)
[2017-12-13 10:05] LABS: NITRITE,URINE POSITIVE (NEGATIVE)
[2017-12-13 10:06] LABS: CLARITY,URINE CLOUDY (CLEAR); COLOR,URINE YELLOW (YELLOW); PROTEIN,URINE DIPSTICK 1+ (NEGATIVE)
[2017-12-13 10:14] LABS: ALBUMIN 2.4 g/dL (3.5-5.0); ALBUMIN/GLOBULIN RATIO 0.6 (0.8-2.0); ANION GAP 11.4 mmol/L (8-16); CALCIUM 9.4 mg/dL (8.4-10.2); CREATININE, SERUM 1.28 mg/dL (0.57-1.11); POTASSIUM 4.4 mmol/L (3.5-5.1)
[2017-12-13 10:15] LABS: BACTERIA,URINE MANY /HPF; EPITHELIAL CELLS,URINE FEW /LPF
[2017-12-13] MEDS ORDERED: ACETAMINOPHEN 325 MG TAB PO ONE (10:30)
--- NOTE | 2017-12-13 11:14 | Diagnostic Imaging Report ---
EXAMINATION: PA and lateral views of the chest. COMPARISON: Chest one view 11/29/2017, chest 2 views 04/07/2017 CLINICAL HISTORY: Low-grade fever today, Rales left base DISCUSSION: Lines/tubes: None. Lungs: Lungs are well-inflated. Likely mild left lower lobe atelectasis. No definite consolidation. Stable mild prominence of the interstitial markings bilaterally. Pleura: Blunting of the left lateral and posterior costophrenic sulci, likely reflecting small pleural effusion. Heart and mediastinum: Cardiac silhouette is unremarkable. Pulmonary vasculature is normal. Bones and soft tissues: No acute bony abnormalities. No interval change in fracture deformity of the right humeral head. IMPRESSION: Small left pleural effusion and likely associated atelectasis. No definite consolidation. Signed by: Dr. Malcolm Corrae M.D. on 12/13/2017 11:11 AM
[2017-12-13] MEDS ORDERED: CEFTRIAXONE SOD 1 GM VIAL IV ONE (11:30)
[2017-12-13] MEDS ORDERED: SODIUM CHLORIDE 0.9% 1000ML 1,000 ML IV SCH (12:49)
[2017-12-13] MEDS ORDERED: ONDANSETRON HCL INJ 2 MG/ML VIAL IV PRN (13:00)
[2017-12-13] MEDS ORDERED: CEFTRIAXONE SOD 1 GM VIAL IV SCH (13:00)
[2017-12-13 13:36] VITALS: BP 115/55
[2017-12-13 14:28] VITALS: BP 115/55
[2017-12-13 16:05] VITALS: BP 95/47
[2017-12-13 20:00] VITALS: BP 137/60
[2017-12-13] MEDS: ACETAMINOPHEN/CODEINE 300MG - 30MG TAB PO SCH (20:31)
[2017-12-13] MEDS: GABAPENTIN 300 MG CAP PO SCH (20:31)
[2017-12-14] VITALS (8 sets, daily range): BP systolic 108–163; BP diastolic 58–70
[2017-12-14 06:08] LABS: BASOPHILS % 0.2 % (0.0-1.0); EOSINOPHILS % 0.1 % (0.0-6.0); HEMATOCRIT 26.8 % (34.2-44.1); HEMOGLOBIN 8.3 g/dL (12.0-16.0); LYMPHOCYTES # (AUTO) 1.8 (1.0-3.2); LYMPHOCYTES % 9.1 % (18.0-39.1); MEAN CORPUSCULAR HEMOGLOBIN 26.3 pg (28-32); MEAN CORPUSCULAR VOLUME 84.8 fL (81-99); MONOCYTES # (AUTO) 1.8 (0.2-0.8); MONOCYTES % 9.3 % (4.4-11.3); NEUTROPHILS # (AUTO) 15.6 (2.1-6.9); NEUTROPHILS % 80.6 % (38.7-80.0); PLATELET COUNT 332 x10e3/uL (140-360); RED BLOOD COUNT 3.16 x10e6/uL (3.6-5.1); RED CELL DISTRIBUTION WIDTH 12.8 % (11.7-14.4)
[2017-12-14 06:24] LABS: ANION GAP 12.6 mmol/L (8-16); CALCIUM 9.4 mg/dL (8.4-10.2); CREATININE, SERUM 1.04 mg/dL (0.57-1.11); POTASSIUM 4.6 mmol/L (3.5-5.1)
[2017-12-14] MEDS: ATENOLOL 50 MG TAB PO SCH (08:41)
[2017-12-14] MEDS: PANTOPRAZOLE SOD 40 MG TABEC PO SCH (08:41)
[2017-12-14] MEDS: GABAPENTIN 300 MG CAP PO SCH ×4 (08:41→20:34)
[2017-12-14] MEDS: ASPIRIN 81 MG CHEW TAB PO SCH (08:41)
[2017-12-14] MEDS: LACTOBACILLUS ACIDOPHILUS CAPSULE PO SCH (08:41)
[2017-12-14] MEDS: LINZESS 72 MCG PO SCH (08:41)
[2017-12-14] MEDS: ACETAMINOPHEN/CODEINE 300MG - 30MG TAB PO SCH ×2 (08:42→20:34)
[2017-12-14] MEDS: CEFEPIME HCL 1 GM VIAL IV SCH ×2 (10:12→20:34)
[2017-12-14] MEDS ORDERED: CEFTRIAXONE SOD 1 GM VIAL IV SCH (11:00)
[2017-12-14] MEDS: LEVOFLOXACIN 750MG/D5W 150ML 150 ML IV SCH (11:10)
[2017-12-14] MEDS ORDERED: ACETAMINOPHEN 325 MG TAB PO PRN (15:00)
[2017-12-15] VITALS (7 sets, daily range): BP systolic 144–180; BP diastolic 65–75
[2017-12-15 06:52] LABS: BASOPHILS % 0.1 % (0.0-1.0); EOSINOPHILS % 0.2 % (0.0-6.0); HEMATOCRIT 26.8 % (34.2-44.1); HEMOGLOBIN 8.3 g/dL (12.0-16.0); LYMPHOCYTES # (AUTO) 0.6 (1.0-3.2); LYMPHOCYTES % 6.4 % (18.0-39.1); MEAN CORPUSCULAR HEMOGLOBIN 26.1 pg (28-32); MEAN CORPUSCULAR VOLUME 84.3 fL (81-99); MONOCYTES % 10.8 % (4.4-11.3); NEUTROPHILS # (AUTO) 7.6 (2.1-6.9); NEUTROPHILS % 82.2 % (38.7-80.0); PLATELET COUNT 337 x10e3/uL (140-360); RED BLOOD COUNT 3.18 x10e6/uL (3.6-5.1); RED CELL DISTRIBUTION WIDTH 12.7 % (11.7-14.4)
[2017-12-15 07:31] LABS: ANION GAP 15.3 mmol/L (8-16); BLOOD UREA NITROGEN 18 mg/dL (7-26); BUN/CREATININE RATIO 21 (6-25); CALCIUM 9.7 mg/dL (8.4-10.2); CARBON DIOXIDE 28 mmol/L (22-29); CHLORIDE 96 mmol/L (98-107); CREATININE, SERUM 0.84 mg/dL (0.57-1.11); EST GLOMERULAR FILTRATION RATE > 60 ML/MIN (60-); GLUCOSE 83 mg/dL (74-118); POTASSIUM 4.3 mmol/L (3.5-5.1); SODIUM 135 mmol/L (136-145)
--- NOTE | 2017-12-15 07:44 | Progress Note ---
DATE: December 15, 2017 OVERNIGHT: Feeling a little better. REVIEW OF SYSTEMS: Denies any dizziness. PHYSICAL EXAMINATION VITAL SIGNS: Reviewed. GENERAL: A tired-appearing woman resting in bed. HEENT: Anicteric. CARDIOVASCULAR: Normal S1 and S2. LUNGS: Moderate breath sounds. ABDOMEN: Soft, nontender and nondistended. EXTREMITIES: No edema or calf tenderness. NEUROLOGICAL: Alert and oriented times 3. Moving all extremities. SKIN: Dry. PSYCHIATRIC: Flat affect. LABS: Reviewed. MEDICATIONS: Reviewed. ASSESSMENT AND PLAN: This is an 87-year-old woman with: 1. Sepsis/urinary tract infection: Continue broad-spectrum antibiotics and follow up cultures. 2. Urinary tract infection: Treated with antibiotics. Continue antibiotics. 3. Physical deconditioning: Continue physical therapy. Skilled facility evaluation pending. 4. Acute kidney injury: Improving with intravenous fluids. 5. Hyponatremia: Improving. Continue rehydration. 6. Prophylaxis: Will use heparin and Pepcid. 7. Disposition: Skilled facility evaluation pending. Job#: [id number] [place]
--- NOTE | 2017-12-15 07:54 | History and Physical ---
PRIMARY CARE PHYSICIAN: Dr. Mann. CHIEF COMPLAINT: Burning urination and fatigue. HISTORY OF PRESENT ILLNESS: This is an 87-year-old woman with a history of dehydration and acute kidney injury, now developing fatigue and pain with urination; therefore, she came to the hospital. Here, she was found to have a urinary tract infection with mild leukocytosis, renal dysfunction, dehydration, hyponatremia and hypotension with fever. She was admitted for further evaluation and management. PAST MEDICAL HISTORY: Syncope, dehydration, acute kidney injury, peripheral neuropathy, hypertension, fall. PAST SURGICAL HISTORY: None. ALLERGIES: PER ELECTRONIC MEDICAL RECORD. FAMILY HISTORY AND SOCIAL HISTORY: The patient lives with her family. No alcohol, illicits or cigarettes. MEDICATIONS: Per electronic medical record. REVIEW OF SYSTEMS: Denies any chest pain. PHYSICAL EXAMINATION VITAL SIGNS: Have been reviewed. GENERAL APPEARANCE: A tired-appearing woman resting in bed. HEENT: Anicteric. Pupils are responsive to light. No oral lesions. CARDIOVASCULAR: Normal S1 and S2. LUNGS: Moderate breath sounds. ABDOMEN: Soft, nontender, nondistended. EXTREMITIES: No edema or calf tenderness. NEUROLOGIC: Alert and oriented times 3. She moves all extremities. SKIN: Dry. PSYCHIATRIC: Flat affect. LABS: Reviewed. MEDICATIONS: Reviewed. ASSESSMENT AND PLAN: An 87-year-old woman. 1. Sepsis due to urinary tract infection. Will treat with IV antibiotics and IV fluids. Follow up cultures. 2. Urinary tract infection. Follow up cultures. 3. Physical deconditioning. Physical therapy consultation. 4. Normocytic anemia, moderate. Will obtain an anemia panel. 5. Hyponatremia. Rehydrate and reassess. 6. Acute kidney injury. Rehydrate and reassess. 7. Neuropathy. Will continue gabapentin. 8. Prophylaxis: Use PPI. Will also add heparin q.8 h. 9. Disposition: Monitor closely. Skilled facility evaluation. Job#: [id number]
[2017-12-15 08:11] LABS: FERRITIN 207.81 ng/mL (4.63-204.00)
[2017-12-15] MEDS: LINZESS 72 MCG PO SCH (09:00)
[2017-12-15] MEDS: FAMOTIDINE 20 MG TAB PO SCH ×2 (09:20→15:52)
[2017-12-15] MEDS: PANTOPRAZOLE SOD 40 MG TABEC PO SCH (09:30)
[2017-12-15] MEDS: HEPARIN SOD (PORCINE) 5,000 UNIT/ML VIAL SC SCH ×2 (10:10→21:56)
[2017-12-15] MEDS: LACTOBACILLUS ACIDOPHILUS CAPSULE PO SCH (10:10)
[2017-12-15] MEDS: CEFEPIME HCL 1 GM VIAL IV SCH ×2 (10:10→21:56)
[2017-12-15] MEDS: ACETAMINOPHEN/CODEINE 300MG - 30MG TAB PO SCH ×2 (10:10→21:56)
[2017-12-15] MEDS: GABAPENTIN 300 MG CAP PO SCH ×4 (10:10→21:55)
[2017-12-15] MEDS: ATENOLOL 50 MG TAB PO SCH (10:10)
[2017-12-15] MEDS: ASPIRIN 81 MG CHEW TAB PO SCH (10:10)
[2017-12-15] MEDS: LEVOFLOXACIN 750MG/D5W 150ML 150 ML IV SCH (10:10)
[2017-12-16] VITALS: BP 153/68
[2017-12-16 04:00] VITALS: BP 169/72
--- NOTE | 2017-12-16 07:01 | Progress Note ---
DATE: December 16, 2017 TIME: 6:38 a.m. OVERNIGHT: Feeling better. REVIEW OF SYSTEMS: Denies any dizziness or chest pain. PHYSICAL EXAMINATION VITAL SIGNS: Reviewed. GENERAL: A tired-appearing woman resting in bed. HEENT: Anicteric. CARDIOVASCULAR: Normal S1 and S2. LUNGS: Moderate breath sounds. ABDOMEN: Soft and nontender. EXTREMITIES: No edema. SKIN: Dry. PSYCHIATRIC: Normal affect. LABS: Reviewed. MEDICATIONS: Reviewed. ASSESSMENT AND PLAN: An 87-year-old woman with: 1. Sepsis/urinary tract infection: She did have Escherichia coli urinary tract infection in the clinic. Here it is gram-negative rods. Will await the cultures. Leukocytosis has resolved. 2. Urinary tract infection: Continue antibiotics. 3. Physical deconditioning: Physical therapy. 4. Acute kidney injury, resolving. 5. Hyponatremia, resolving. 6. Normocytic anemia, moderate: Will continue to follow. 7. Iron deficiency anemia: Start intravenous Ferrlecit and oral ferrous sulfate. Iron level is 18 and percent saturation is 7. 8. Prophylaxis: Will continue regimen. 9. Disposition: Discharge planning to skilled facility pending. Job#: [id number]
[2017-12-16 07:58] VITALS: BP 147/84
[2017-12-16] MEDS ORDERED: FERROUS SULFATE 325 MG TAB PO SCH (08:00)
[2017-12-16] MEDS: FAMOTIDINE 20 MG TAB PO SCH (08:34)
[2017-12-16] MEDS: ASPIRIN 81 MG CHEW TAB PO SCH (08:34)
[2017-12-16] MEDS: GABAPENTIN 300 MG CAP PO SCH (08:34)
[2017-12-16] MEDS: PANTOPRAZOLE SOD 40 MG TABEC PO SCH (08:34)
[2017-12-16] MEDS: LACTOBACILLUS ACIDOPHILUS CAPSULE PO SCH (08:34)
[2017-12-16] MEDS: LINZESS 72 MCG PO SCH (08:35)
[2017-12-16] MEDS: ACETAMINOPHEN/CODEINE 300MG - 30MG TAB PO SCH (08:35)
[2017-12-16] MEDS: ATENOLOL 50 MG TAB PO SCH (08:35)
[2017-12-16] MEDS: CEFEPIME HCL 1 GM VIAL IV SCH (08:35)
[2017-12-16] MEDS: HEPARIN SOD (PORCINE) 5,000 UNIT/ML VIAL SC SCH (08:36)
[2017-12-16] MEDS ORDERED: SODIUM FERRIC GLUCONATE COMPLX 125 MG in SODIUM CHLORIDE 0.9% 100 ML 100 ML IV SCH (09:00)
[2017-12-16] MEDS: LEVOFLOXACIN 750MG/D5W 150ML 150 ML IV SCH (09:00)
[2017-12-16 11:22] VITALS: BP 147/65
== END 2017-12-16 14:05 | DRG 872 ==
LOC: ER 09:01 → ERHOLD 13:14 → IMCU 13:18 → OBSVTOIN 12-16 06:20
PROVIDERS: ADMIT Internal Medicine; ATTEND Internal Medicine
PROC: 05HC33Z Insertion of Infusion Device into Left Basilic Vein, Percutaneous Approach (ICD-10-PCS; principal; 2017-12-15)
DX: A41.9 Sepsis, unspecified organism (principal); N17.9 Acute kidney failure, unspecified; I95.9 Hypotension, unspecified; E86.0 Dehydration; G62.9 Polyneuropathy, unspecified; E87.1 Hypo-osmolality and hyponatremia; N39.0 Urinary tract infection, site not specified; B96.20 Unspecified Escherichia coli [E. coli] as the cause of diseases classified elsewhere; I10 Essential (primary) hypertension; D50.9 Iron deficiency anemia, unspecified; Z86.718 Personal history of other venous thrombosis and embolism; I73.9 Peripheral vascular disease, unspecified; K21.9 Gastro-esophageal reflux disease without esophagitis; R53.1 Weakness; Z91.81 History of falling; Z79.82 Long term (current) use of aspirin
CPT/HCPCS: 36415; 71046; 80048; 80053; 81001; 82728; 83540; 83605; 83880; 84466; 85025; 87040; 87071; 87086; 87186; 87205; 93005; 99284; G0378; J0692; J0696; J1644; J2916; J7030; J7040

== ENCOUNTER 2017-12-26 18:10 | Inpatient (IN) | payer MEDICARE ==
[~2017-12-26] VITALS: Ht 165.1 cm; Wt 61.2 kg
[~2017-12-26 18:10] MED LIST changes: +BREO ELLIPTA INH; +LINZESS PO
--- OUTSIDE RECORDS SUMMARY | 2017-12-26 18:16 | XMS REPORT | Continuity of Care Document ---
Author Author [facility] Organization [facility] Address [address] [place] [address] Phone Unavailable Care Team Providers Care Spring Fitter Helper Name Role Phone AMAURI ORTEGA MD PCP Insurance Providers Guarantor Selene Conner Address [facility] [place] [address] Email PTDECLINED Payer [facility] Policy Number [id number] Subscriber's Name Selene Conner Relationship 18 Self / Same As Patient Group Number [id number] Group Name RETIRED Effective Date 17 Expiration Date 78 Advance Directives Directive Response Recorded Date/Time Does the patient have an advance directive? No 12/13/17 2:40pm If yes, is advance directive on file with [facility]? No 12/13/17 2:40pm If not on file with [facility] will patient provide a copy? No 12/13/17 2:40pm Do you have a Directive to Physician? No 12/13/17 9:06am Do you have a Medical Power of Rnfa? No 12/13/17 9:06am Do you have an out of hospital Do Not Resuscitate Order? No 12/13/17 9:06am Do you have any special needs we should be aware of? No 12/13/17 9:06am Do you have a support person here with you today? No 12/13/17 9:06am Did patient receive Notice of Privacy Practices? No 12/13/17 9:06am Did patient receive patient rights and responsibilities? No 12/13/17 9:06am Problems Medical Problem Onset Date Status Elevation of cardiac enzymes 02/21/2016 Acute Hyponatremia 02/21/2016 Acute Weakness 02/21/2016 Acute Medications Current Home Medications Medication Dose Units Route Directions Days Qty Instructions Start Date Aspirin 81 Mg Tab.chew 1 Tab Oral Daily Atenolol 25 Mg Tablet 50 Mg Oral Daily Breo Ellipta 100 Mcg Inhalation Gabapentin 300 Mg Capsule 300 Mg Oral Four Times Daily Lactobac Cmb #3/Fos/Pantethine (Probiotic & Acidophilus Cap) 1 Each Capsule 1 Tab Oral Daily Linzess 72 Mcg Oral Daily Losartan Potassium 25 Mg Tablet [...] 75 Mg Oral Discontinued Duoneb , Discontinued Hydrochlorothiazide 12.5 Mg Capsule, 1 Cap Oral Daily Discontinued Hydrocodone Bit/Acetaminophen (Hydrocodon-Acetaminophen 5-500) 1 Each [...] Onset Date Status Hx Psychiatric Problems No 12/13/2017 2:40pm Not Applicable Not Applicable Hx Eating Disorder No 12/13/2017 2:40pm Not Applicable Not Applicable Hx Substance Use Disorder No 12/13/2017 2:40pm Not Applicable Not Applicable Hx Depression No 12/13/2017 2:40pm Not Applicable Not Applicable Hx Alcohol Use No 12/13/2017 2:40pm Not Applicable Not Applicable Hx Substance Use Treatment No 12/13/2017 2:40pm Not Applicable Not Applicable Hx Physical Abuse No 12/13/2017 2:40pm Not Applicable Not Applicable Smoking Status Start Date Stop Date Former smoker Hospital Discharge Instructions No hospital discharge instruction information available. Plan of Care Discharge Date 12/16/17 2:05pm Disposition TRANSFER LONG TERM Prescriptions See Medication Section Functional Status Query Response Date Recorded FUNCTIONAL STATUS . December 15, 2017 12:48pm Assistive Devices Standard Walker December 13, 2017 2:28pm Ambulation Ability Standby Assistance December 13, 2017 2:28pm Toileting Ability Standby Assistance December 13, 2017 2:28pm Allergies, Adverse Reactions, Alerts No known allergies. Immunizations No immunization information available. Vital Signs Acute Vital Signs Vital Response Date/Time Temperature (Fahrenheit) 98.9 degrees F (97.6 - 99.5) 12/16/2017 11:22am Pulse Pulse Rate (adult) 99 bpm (60 - 90) 12/16/2017 11:40am Respiratory Rate 16 bpm (12 - 24) 12/16/2017 11:40am Blood Pressure 147/65 mm Hg 12/16/2017 11:22am Height 5 ft 7 in 12/13/2017 9:04am Weight 132 lb 12/16/2017 12:00am Body Mass Index 20.7 kg/m^2 12/16/2017 12:00am Results Laboratory Results Test Name Result Units Flags Reference Collection Date/Time Result Date/ Time Comments Prothrombin Time 13.8 seconds 11.9-14.5 11/29/2017 1:30pm [...] seconds 23.8-35.5 11/29/2017 1: 30pm 11/29/2017 1:47pm Triglycerides Level 59 MG/DL 0-149 11/30/2017 6:00am [...] L 3.0-3.6 11/30/2017 6:00am 11/30/2017 6: 39am Creatine Kinase 55 IU/L 29-168 11/30/2017 6:00am 11/30/2017 6:52am Creatine Kinase MB 1.50 ng/mL 0-5.0 11/30/2017 6:00am 11/30/2017 6: 59am Troponin I 0.042 ng/mL 0-0.300 11/30/2017 6:00am 11/30/2017 6:59am White Blood Count 9.24 x10e3/uL # 4.8-10.8 12/15/2017 6:15am 12/15/2017 6 :54am Red Blood Count 3.18 x10e6/uL L 3.6-5.1 12/15/2017 6:15am 12/15/2017 6: 54am Hemoglobin 8.3 g/dL L 12.0-16.0 12/15/2017 6:15am 12/15/2017 6:54am Hematocrit 26.8 % L 34.2-44.1 12/15/2017 6:15am 12/15/2017 6:54am Mean Corpuscular Volume 84.3 fL 81-99 12/15/2017 6:15am 12/15/2017 6: 54am Mean Corpuscular Hemoglobin 26.1 pg L 28-32 12/15/2017 6:15am 2017 6:54am Mean Corpuscular Hemoglobin Concent 31.0 g/dL 31-35 12/15/2017 6:15am 12/15/2017 6:54am Red Cell Distribution Width 12.7 % 11.7-14.4 12/15/2017 6:15am 2017 6:54am Platelet Count 337 x10e3/uL 140-360 12/15/2017 6:15am 12/15/2017 6: 54am Neutrophils (%) (Auto) 82.2 % H 38.7-80.0 12/15/2017 6:15am 12/15/2017 6 :54am Lymphocytes (%) (Auto) 6.4 % L 18.0-39.1 12/15/2017 6:15am 12/15/2017 6: 54am Monocytes (%) (Auto) 10.8 % 4.4-11.3 12/15/2017 6:15am 12/15/2017 6: 54am Eosinophils (%) (Auto) 0.2 % 0.0-6.0 12/15/2017 6:15am 12/15/2017 6: 54am Basophils (%) (Auto) 0.1 % 0.0-1.0 12/15/2017 6:1512/15/2017 6:54am IM GRANULOCYTES % 0.3 % 0.0-1.0 12/15/2017 6:15am 12/15/2017 6:54am Neutrophils # (Auto) 7.6 H 2.1-6.9 12/15/2017 6:15am 12/15/2017 6: 54am Lymphocytes # (Auto) 0.6 L 1.0-3.2 12/15/2017 6:15am 12/15/2017 6: 54am Monocytes # (Auto) 1.0 H 0.2-0.8 12/15/2017 6:15am 12/15/2017 6:54am Eosinophils # (Auto) 0.0 0.0-0.4 12/15/2017 6:15am 12/15/2017 6:54am Basophils # (Auto) 0.0 0.0-0.1 12/15/2017 6:15am 12/15/2017 6:54am Absolute Immature Granulocyte (auto 0.03 x10e3/uL 0-0.1 12/15/2017 6: 15am 12/15/2017 6:54am Urine Color YELLOW YELLOW 12/13/2017 9:18am 12/13/2017 10:06am Urine Clarity CLOUDY H CLEAR 12/13/2017 9:18am 12/13/2017 10:06am Urine Specific Mclean 1.010 1.010-1.025 12/13/2017 9:18am 2017 10:06am Urine pH 5 5 - 7 12/13/2017 9:18am 12/13/2017 10:06am Urine Leukocyte Esterase 2+ H NEGATIVE 12/13/2017 9:18am 12/13/2017 10 :06am Urine Nitrite POSITIVE H NEGATIVE 12/13/2017 9:18am 12/13/2017 10: 06am Urine Protein 1+ H NEGATIVE 12/13/2017 9:18am 12/13/2017 10:06am Urine Glucose (UA) NEGATIVE NEGATIVE 12/13/2017 9:18am 12/13/2017 10: 06am Urine Ketones NEGATIVE NEGATIVE 12/13/2017 9:18am 12/13/2017 10:06am Urine Urobilinogen 0.2 mg/dL 0.2 - 1 12/13/2017 9:18am 12/13/2017 10: 06am Urine Bilirubin NEGATIVE NEGATIVE 12/13/2017 9:18am 12/13/2017 10: 06am Urine Blood 1+ H NEGATIVE 12/13/2017 9:18am 12/13/2017 10:06am Urine WBC 11-20 /HPF H 0-5 12/13/2017 9:18am 12/13/2017 10:15am Urine RBC 11-20 /HPF H 0-5 12/13/2017 9:18am 12/13/2017 10:15am Urine Bacteria MANY /HPF H NONE 12/13/2017 9:18am 12/13/2017 10:15am Urine Epithelial Cells FEW /LPF NONE 12/13/2017 9:18am 12/13/2017 10: 15am Sodium Level 135 mmol/L L 136-145 12/15/2017 6:15am 12/15/2017 7:38am Potassium Level 4.3 mmol/L 3.5-5.1 12/15/2017 6:1512/15/2017 7:38am Chloride Level 96 mmol/L L 98-107 12/15/2017 6:15am 12/15/2017 7:38am Carbon Dioxide Level 28 mmol/L 22-29 12/15/2017 6:1512/15/2017 7: 38am Anion Gap 15.3 mmol/L 8-16 12/15/2017 6:1512/15/2017 7:38am Blood Urea Nitrogen 18 mg/dL 7-12/15/2017 6:1512/15/2017 7:38am Creatinine 0.84 mg/dL 0.57-1.11 12/15/2017 6:1512/15/2017 7:38am BUN/Creatinine Ratio 21 -12/15/2017 6:1512/15/2017 7:38am Estimat Glomerular Filtration Rate > 60 ML/MIN 6012/15/2017 6:15 7:38am Ranges were taken from the National Kidney Disease Education Program and the National Kidney Foundation literature. Reference ranges: 60 or greater: Normal 16-59 (for 3 consecutive months): Chronic kidney disease 15 or less: Kidney failure Glucose Level 83 mg/dL 74-118 12/15/2017 6:1512/15/2017 7:38am Calcium Level 9.7 mg/dL 8.4-10.2 12/15/2017 6:1512/15/2017 7:38am Lactic Acid Level 11.3 MG/DL 4.5-19.8 12/13/2017 9:18am 12/13/2017 10: 24am Iron Level 18 ug/dL L 50-170 12/15/2017 6:1512/15/2017 7:59am Total Iron Binding Capacity 241 ug/dL L 261-478 12/15/2017 6:152017 7:59am Percent Iron Saturation 7 % L 15-50 12/15/2017 6:1512/15/2017 7:59am Transferrin 172 mg/dL L 180-382 12/15/2017 6:1512/15/2017 7:59am Ferritin 207.81 ng/mL H 4.63-204.00 12/15/2017 6:1512/15/2017 8:17am Total Bilirubin 0.7 mg/dL 0.2-1.2 12/13/2017 9:18am 12/13/2017 10:16am Aspartate Amino Transf (AST/SGOT) 35 IU/L H 5-34 12/13/2017 9:18am 12/13 10:16am Alanine Aminotransferase (ALT/SGPT) 11 IU/L 0-55 12/13/2017 9:18am 10:16am Total Protein 6.1 g/dL L 6.5-8.1 12/13/2017 9:18am 12/13/2017 10:16am Albumin 2.4 g/dL L 3.5-5.0 12/13/2017 9:18am 12/13/2017 10:16am Globulin 3.7 g/dL H 2.3-3.5 12/13/2017 9:18am 12/13/2017 10:16am Albumin/Globulin Ratio 0.6 L 0.8-2.0 12/13/2017 9:18am 12/13/2017 10: 16am Alkaline Phosphatase 95 IU/L 40-150 12/13/2017 9:18am 12/13/2017 10: 16am B-Type Natriuretic Peptide 328.4 pg/mL H 0-100 12/13/2017 9:18am 2017 10:28am Microbiology Results Procedure Source Organism/Result Collection Date/Time Result Date/Time Result Status Blood Culture Blood ESCHERICHIA COLI 12/13/2017 9:45am 12/16/2017 1:06pm Final Blood Culture Blood Growth detected. Culture workup ordered. 12/13/2017 9: 18am 12/15/2017 4:36pm Final Urine Culture Urine,Catheterized ESCHERICHIA COLI 12/14/2017 9:34am 2017 6:47am Final Procedures Procedure Status Date Provider(s) X-ray of chest, two views Active 04/07/17 LO COOPER MD Computed tomography of abdomen and pelvis with contrast Active 04/09/17 LO COOPER MD Computed tomography of brain without radiopaque contrast Active 11/29/17 EMILY GOMEZ MD Ultrasound, renal Active 11/29/17 EMILY GOMEZ MD X-ray of chest, two views Active 12/13/17 EMILY GOMEZ MD Encounters Encounter Location Arrival/Admit Date Discharge/Depart Date Attending Provider [facility] 12/16/17 6:20am 12/16/17 2:05pm CIERA DICKSON MD [facility] (obs[facility] 11/29/17 4:07pm 09/08 12:23pm MT WOLFE MD Registered [facility] 04/09/17 6:56am LO COOPER MD
[2017-12-26 19:08] LABS: BASOPHILS # (AUTO) 0.1 (0.0-0.1); BASOPHILS % 0.6 % (0.0-1.0); EOSINOPHILS # (AUTO) 0.1 (0.0-0.4); EOSINOPHILS % 1.4 % (0.0-6.0); HEMATOCRIT 32.9 % (34.2-44.1); HEMOGLOBIN 10.2 g/dL (12.0-16.0); LYMPHOCYTES # (AUTO) 1.6 (1.0-3.2); LYMPHOCYTES % 19.4 % (18.0-39.1); MEAN CORPUSCULAR HEMOGLOBIN 26.6 pg (28-32); MEAN CORPUSCULAR VOLUME 85.7 fL (81-99); MONOCYTES % 12.2 % (4.4-11.3); NEUTROPHILS # (AUTO) 5.3 (2.1-6.9); NEUTROPHILS % 65.8 % (38.7-80.0); PLATELET COUNT 292 x10e3/uL (140-360); RED BLOOD COUNT 3.84 x10e6/uL (3.6-5.1); RED CELL DISTRIBUTION WIDTH 14.6 % (11.7-14.4)
[2017-12-26 19:26] LABS: ALANINE AMINOTRANSFERASE 13 IU/L (0-55); ALBUMIN 3.2 g/dL (3.5-5.0); ALBUMIN/GLOBULIN RATIO 0.8 (0.8-2.0); ALKALINE PHOSPHATASE 76 IU/L (40-150); ANION GAP 13.1 mmol/L (8-16); BLOOD UREA NITROGEN 10 mg/dL (7-26); BUN/CREATININE RATIO 12 (6-25); CARBON DIOXIDE 29 mmol/L (22-29); CHLORIDE 97 mmol/L (98-107); CREATINE KINASE 18 IU/L (29-168); CREATININE, SERUM 0.84 mg/dL (0.57-1.11); EST GLOMERULAR FILTRATION RATE > 60 ML/MIN (60-); GLUCOSE 94 mg/dL (74-118); POTASSIUM 4.1 mmol/L (3.5-5.1); SODIUM 135 mmol/L (136-145)
--- NOTE | 2017-12-26 20:04 | Diagnostic Imaging Report ---
Two view chest x-ray INDICATION: Altered level of consciousness, UTI COMPARISON: Chest x-ray 12/13/2017. FINDINGS: Stable mild cardiomegaly and aortic ectasia with atherosclerotic calcifications. There is no evidence of hilar lymphadenopathy. The lungs are diffusely hyperinflated. There is increasing groundglass airspace opacity in the right upper lobe. There is no correlate on lateral image. No soft tissue mass. No pleural effusions or pneumothorax. Evaluation of the osseous structures demonstrates diffuse demineralization. There is a healing fracture deformity of the right shoulder. No new fractures have developed. IMPRESSION: 1. Increasing airspace opacity in the right upper lobe could represent alveolitis or developing infiltrate. Close interval follow-up is recommended. 2. Healing fracture deformity of the right shoulder. 3. Stable COPD and mild cardiomegaly. Signed by: Dr. Angle Lovelace MD on 12/26/2017 8:00 PM
--- NOTE | 2017-12-26 20:04 | Diagnostic Imaging Report ---
EXAMINATION: Head CT HISTORY: Altered mental status COMPARISON: None. TECHNIQUE: Multidetector axial images were obtained without contrast from the foramen magnum to the vertex . The images were reconstructed using brain and bone algorithms. Thin section brain images were reformatted into coronal and sagittal planes. Intravenous contrast: None. Motion/streaking artifact limits the evaluation of the skull base and posterior cranial fossa. FINDINGS: Parenchyma: 1. No abnormal densities. 2. No mass or hemorrhage. No CT evidence of acute territorial vascular insult. Extra-axial spaces:No abnormal density. No extra-axial fluid collections Brain volume: Normal for age. Ventricles: No hydrocephalus or displacement. Arteries: No density suggestive of thrombus. Dural sinuses: No abnormal density. Extra-axial spaces: No abnormal density. Foramen magnum: No mass, Chiari malformation, or basilar invagination. Sella: No obvious mass. Paranasal/mastoid sinuses: Imaged portions unremarkable. Skull/Scalp: No lytic or blastic lesions. No fractures. IMPRESSION: No acute intracranial abnormality, particularly no mass, hemorrhage or acute cortical infarct. Signed by: Dr. Carisa Osorio M.D. on 12/26/2017 8:00 PM
[2017-12-26] MEDS ORDERED: AZITHROMYCIN 500MG/SOD CHL 0.9% 250ML BAG IV SCH (21:00)
[2017-12-26 22:05] LABS: BILIRUBIN,URINE NEGATIVE (NEGATIVE); CLARITY,URINE CLEAR (CLEAR); COLOR,URINE YELLOW (YELLOW); KETONES,URINE NEGATIVE (NEGATIVE); LEUKOCYTE ESTERASE ,URINE NEGATIVE (NEGATIVE); NITRITE,URINE NEGATIVE (NEGATIVE); PROTEIN,URINE DIPSTICK NEGATIVE (NEGATIVE); URINE UROBILINOGEN 0.2 mg/dL (0.2 - 1)
[2017-12-26] MEDS: SODIUM CHLORIDE 0.9% 1000ML 1,000 ML IV SCH (22:15)
[2017-12-26] MEDS ORDERED: HYDRALAZINE HCL 20 MG/ML VIAL IV PRN (22:15)
[2017-12-26] MEDS: CEFTRIAXONE SOD 1 GM VIAL IV SCH (22:15)
[2017-12-26] MEDS: AZITHROMYCIN 500MG/NS 250 ML 250 ML IV SCH (22:15)
[2017-12-26 22:25] LABS: EPITHELIAL CELLS,URINE MODERATE /LPF
[2017-12-26 22:26] LABS: RBC,URINE 0-5 /HPF (0-5)
[2017-12-26] MEDS: ALBUTEROL SULF 0.083% NEB SOLN 3 ML NEB NEB SCH (22:50)
[2017-12-27] VITALS (8 sets, daily range): BP systolic 113–177; BP diastolic 51–75
[2017-12-27] MEDS: ACETAMINOPHEN/CODEINE 300MG - 30MG TAB PO PRN ×3 (00:32→22:20)
[2017-12-27] MEDS ORDERED: FERROUS SULFAT325 MG (01:30)
[2017-12-27] MEDS ORDERED: COLACE100 MG PO (01:30)
[2017-12-27] MEDS ORDERED: TYLENOL WITH C1 EACH PO (01:38)
[2017-12-27] MEDS: IPRATROPIUM BROMIDE 0.02% 2.5 ML NEB NEB SCH ×4 (02:55→20:15)
[2017-12-27] MEDS: ALBUTEROL SULF 0.083% NEB SOLN 3 ML NEB NEB SCH ×5 (02:55→20:15)
[2017-12-27] MEDS: SODIUM CHLORIDE 0.9% 1000ML 1,000 ML IV SCH ×2 (04:46→12:46)
[2017-12-27 07:15] LABS: BASOPHILS % 0.6 % (0.0-1.0); EOSINOPHILS # (AUTO) 0.1 (0.0-0.4); EOSINOPHILS % 2.5 % (0.0-6.0); HEMATOCRIT 30.5 % (34.2-44.1); HEMOGLOBIN 9.3 g/dL (12.0-16.0); LYMPHOCYTES % 19.1 % (18.0-39.1); MEAN CORPUSCULAR HEMOGLOBIN 26.4 pg (28-32); MEAN CORPUSCULAR HGB CONC 30.5 g/dL (31-35); MEAN CORPUSCULAR VOLUME 86.6 fL (81-99); MONOCYTES # (AUTO) 0.8 (0.2-0.8); MONOCYTES % 15.6 % (4.4-11.3); NEUTROPHILS # (AUTO) 3.2 (2.1-6.9); NEUTROPHILS % 61.6 % (38.7-80.0); PLATELET COUNT 267 x10e3/uL (140-360); RED BLOOD COUNT 3.52 x10e6/uL (3.6-5.1); RED CELL DISTRIBUTION WIDTH 14.8 % (11.7-14.4)
[2017-12-27 07:44] LABS: ALANINE AMINOTRANSFERASE 11 IU/L (0-55); ALBUMIN 2.8 g/dL (3.5-5.0); ALBUMIN/GLOBULIN RATIO 0.8 (0.8-2.0); ALKALINE PHOSPHATASE 67 IU/L (40-150); ANION GAP 9.7 mmol/L (8-16); BLOOD UREA NITROGEN 8 mg/dL (7-26); BUN/CREATININE RATIO 11 (6-25); CALCIUM 9.4 mg/dL (8.4-10.2); CARBON DIOXIDE 31 mmol/L (22-29); CHLORIDE 101 mmol/L (98-107); CREATININE, SERUM 0.74 mg/dL (0.57-1.11); EST GLOMERULAR FILTRATION RATE > 60 ML/MIN (60-); GLUCOSE 86 mg/dL (74-118); POTASSIUM 3.7 mmol/L (3.5-5.1); SODIUM 138 mmol/L (136-145)
[2017-12-27 08:08] LABS: CREATINE KINASE MB 1.2 ng/mL (0-5.0)
[2017-12-27] MEDS ORDERED: ATENOLOL 50 MG PO SCH (09:00)
[2017-12-27] MEDS: PANTOPRAZOLE SOD 40 MG TABEC PO SCH (09:15)
[2017-12-27] MEDS: DOCUSATE SODIUM 100 MG CAP PO SCH (09:15)
[2017-12-27] MEDS: FLUTICASONE PROPIONATE NASAL SPRAY NS SCH ×2 (09:15→21:39)
[2017-12-27] MEDS: FERROUS SULFATE 325 MG TAB PO SCH ×2 (09:15→16:20)
[2017-12-27] MEDS: LACTOBACILLUS ACIDOPHILUS CAPSULE PO SCH (09:15)
[2017-12-27] MEDS: GABAPENTIN 300 MG CAP PO SCH ×4 (09:15→21:39)
[2017-12-27] MEDS: ASPIRIN 81 MG CHEW TAB PO SCH (09:15)
[2017-12-27] MEDS: ATENOLOL 50 MG TAB PO SCH (09:16)
[2017-12-27] MEDS: BENZONATATE 100 MG CAP PO SCH ×3 (09:16→21:39)
[2017-12-27] MEDS: ACETAMINOPHEN 325 MG TAB PO PRN ×2 (10:59→16:20)
[2017-12-27] MEDS: CYCLOBENZAPRINE HCL 10 MG TAB PO PRN ×2 (11:43→21:39)
--- NOTE | 2017-12-27 11:57 | Diagnostic Imaging Report ---
Examination: Single AP view of the chest. COMPARISON: December 26, 2017 INDICATION: Pneumonia evaluation DISCUSSION: Lines/tubes: None. Lungs: Stable appearance of the lungs with prominent interstitial markings most prominent in the upper lobes. No consolidative pneumonia. Pleura: There is no pleural effusion or pneumothorax. Heart and mediastinum: The heart and the mediastinum are unremarkable. Bones and soft tissues: No acute bony abnormalities. Remote fracture of the right proximal humerus. IMPRESSION: 1. Stable appearance of the lungs with prominent interstitial markings most prominent in the upper lobes. Signed by: Dr. Olman Angel M.D. on 12/27/2017 11:53 AM
--- NOTE | 2017-12-27 13:01 | History and Physical ---
PRIMARY CARE PHYSICIAN: Dr. Mann CHIEF COMPLAINT: Altered mental state. HISTORY OF PRESENT ILLNESS: This is 87-year-old woman recently discharged after urinary tract infection E. coli to [facility], receiving physical therapy there, had episodes of somnolence and poor responsiveness. Patient had been only treated for urinary tract infection, duration of antibiotics for about 7 days. Patient sent here by family now. Review of microbiology showed that blood was also positive for E. coli. Patient is admitted for further evaluation and management. PAST MEDICAL HISTORY: Acute kidney injury, E. coli urinary tract infection, peripheral neuropathy, hypertension, fall, syncope, dehydration. PAST SURGICAL HISTORY: None. ALLERGIES: PER ELECTRONIC MEDICAL RECORD. FAMILY/SOCIAL HISTORY: Patient previously living with family, now has been at [facility]. No alcohol, illicits, or cigarettes. MEDICATIONS: Per electronic medical record. REVIEW OF SYSTEMS: Denies any chest pain or shortness of breath. PHYSICAL EXAMINATION: VITAL SIGNS: Have been reviewed. GENERAL APPEARANCE: Tired-appearing woman resting in bed. HEENT: Anicteric. Pupils respond to light. No oral lesions. CARDIOVASCULAR: Normal S1 and S2. LUNGS: Moderate breath sounds. ABDOMEN: Soft, nontender, nondistended. EXTREMITIES: No edema or calf tenderness. NEUROLOGICAL: Alert and oriented x2. She moves all extremities. She does have mild cognitive slowing. SKIN: Dry. PSYCHIATRIC: Flat affect. LABS: Reviewed. MEDICATIONS: Reviewed. ASSESSMENT AND PLAN: An 87-year-old woman. 1. Bacteremia with Escherichia coli. We will continue intravenous ceftriaxone about 14 days of intravenous antibiotics and follow up cultures. 2. Hypertensive urgency. Restart home medications. 3. Urinary tract infection with Escherichia coli, was treated. Here the urine is again positive. This is likely Escherichia coli infection again. Will continue ceftriaxone and follow up cultures. 4. Acute alveolitis. She is also receiving azithromycin. Will consider steroids, but patient does not seem to have any respiratory problems at this time. 5. Normocytic anemia. Will follow. 6. Physical deconditioning. Physical therapy. 7. Constipation. Continue bowel regimen. 8. Prophylaxis. Use Lovenox and proton pump inhibitor. 9. Disposition. Follow up closely. Possible discharge back to the [facility] facility with 14 days of intravenous antibiotics. We can follow up cultures from there. Job#: [id number]
[2017-12-27 15:25] LABS: CREATINE KINASE MB 1.3 ng/mL (0-5.0)
[2017-12-27] MEDS: ENOXAPARIN SOD INJ 40 MG/0.4 ML SYR SC SCH (16:20)
[2017-12-27] MEDS: HYDRALAZINE HCL 25 MG TAB PO SCH ×2 (16:20→21:39)
[2017-12-27] MEDS: AZITHROMYCIN 500MG/NS 250 ML 250 ML IV SCH (21:39)
[2017-12-27] MEDS: CEFTRIAXONE SOD 1 GM VIAL IV SCH (21:39)
[2017-12-28] VITALS (8 sets, daily range): BP systolic 117–172; BP diastolic 54–72
[2017-12-28] MEDS: IPRATROPIUM BROMIDE 0.02% 2.5 ML NEB NEB SCH ×4 (02:55→19:15)
[2017-12-28] MEDS: ALBUTEROL SULF 0.083% NEB SOLN 3 ML NEB NEB SCH ×6 (02:55→22:20)
[2017-12-28] MEDS: ACETAMINOPHEN/CODEINE 300MG - 30MG TAB PO PRN ×3 (04:54→19:38)
[2017-12-28] MEDS: HYDRALAZINE HCL 25 MG TAB PO SCH ×3 (06:02→21:26)
[2017-12-28] MEDS: DOCUSATE SODIUM 100 MG CAP PO SCH (09:54)
[2017-12-28] MEDS: FERROUS SULFATE 325 MG TAB PO SCH ×2 (09:54→16:42)
[2017-12-28] MEDS: FLUTICASONE PROPIONATE NASAL SPRAY NS SCH ×2 (09:54→21:24)
[2017-12-28] MEDS: LACTOBACILLUS ACIDOPHILUS CAPSULE PO SCH (09:54)
[2017-12-28] MEDS: GABAPENTIN 300 MG CAP PO SCH ×5 (09:54→21:25)
[2017-12-28] MEDS: ASPIRIN 81 MG CHEW TAB PO SCH (09:54)
[2017-12-28] MEDS: PANTOPRAZOLE SOD 40 MG TABEC PO SCH (09:56)
[2017-12-28] MEDS: ATENOLOL 50 MG TAB PO SCH (09:57)
[2017-12-28] MEDS: BENZONATATE 100 MG CAP PO SCH ×3 (09:57→21:25)
[2017-12-28] MEDS: SODIUM CHLORIDE 0.9% 1000ML 1,000 ML IV SCH ×3 (14:20→17:00)
[2017-12-28] MEDS: CYCLOBENZAPRINE HCL 10 MG TAB PO PRN (15:40)
--- NOTE | 2017-12-28 15:59 | Progress Note ---
DATE: December 28, 2017 TIME: 1515 MEDICINE PROGRESS NOTE OVERNIGHT: No acute event. REVIEW OF SYSTEMS: Patient denies any chest pain or shortness of breath. PHYSICAL EXAMINATION VITAL SIGNS: Temperature 96.8 oral, P 71, respiratory rate 18, BP systolic ranging from 192 to 142 with a steady diastolic of 65. O2 on nasal cannula at 2 L with resultant pulse ox of 96%. GENERAL APPEARANCE: This is a tired-appearing, elderly female sitting supine in bed. HEENT: Atraumatic. PERRLA. Oral mucosa is moist and intact. CV: S1 and S2 auscultated without extra cardiac sounds. LUNGS: Breath sounds somewhat diminished in all morris without wheezes noted. ABDOMEN: Soft. Nontender and not distended. EXTREMITIES: No calf tenderness, clubbing or edema. NEUROLOGIC: Alert and oriented times 2. She moves all extremities and follows all commands. Patient with some slow response to questions. SKIN: Dry. PSYCHIATRIC: Flat affect. LABS: Previous day's labs reviewed. MEDICATIONS 1. Albuterol neb treatment. 2. Tessalon Perles p.o. t.i.d. 3. Hydralazine q.8 h. 25 mg. 4. NS at 125. 5. Gabapentin 300 mg p.o. q.i.d. 6. Tylenol No. 3 q.6 h. p.r.n. pain. 7. Atrovent nebs q.6 h. 8. Atenolol 50 mg p.o. daily. 9. Protonix 40 mg p.o. daily. 10. Flonase 1 spray per nostril q.12 h. 11. Probiotic daily. 12. Ferrous sulfate 325 p.o. b.i.d. 13. Docusate sodium 100 mg p.o. daily. 14. Baby aspirin p.o. daily. 15. Flexeril 5 mg q.8 h. p.r.n. 16. IV azithromycin daily. 17. IV Rocephin. 18. Prophylactic Lovenox. 19. P.R.N. Tylenol. 20. P.R.N. 10 mg IV hydralazine for elevated blood pressure. ASSESSMENT AND PLAN: This is an 87-year-old woman with: 1. Bacteremia/Escherichia coli: Continue IV Rocephin times 14 days intravenously. Follow up cultures. 2. Hypertensive urgency: P.R.N. hydralazine being used again this day for markedly elevated excursions in blood pressure. 3. Urinary tract infection with Escherichia coli previously treated: IV antibiotics as above. Follow up cultures. 4. Acute alveolitis: Continue with the IV azithromycin. Patient without respiratory symptoms at this time. 5. Normocytic anemia. Follow up counts in a.m. 6. Physical deconditioning: PT eval and treat. 7. Constipation: Bowel regimen. 8. Prophylaxis: Lovenox and PPI. 9. Disposition: Discharge back to SNF with 14 days of IV antibiotics. EEG obtained this day and follow up with neurology's recommendations. Dictated by Ady Villagomez NP. Job#: [id number]
[2017-12-28] MEDS: ENOXAPARIN SOD INJ 40 MG/0.4 ML SYR SC SCH (16:42)
[2017-12-28] MEDS: CEFTRIAXONE SOD 1 GM VIAL IV SCH (21:24)
[2017-12-28] MEDS: AZITHROMYCIN 500MG/NS 250 ML 250 ML IV SCH (21:25)
[2017-12-29] VITALS (7 sets, daily range): BP systolic 115–153; BP diastolic 54–67
[2017-12-29] MEDS: SODIUM CHLORIDE 0.9% 1000ML 1,000 ML IV SCH ×3 (00:51→09:55)
[2017-12-29] MEDS: IPRATROPIUM BROMIDE 0.02% 2.5 ML NEB NEB SCH ×4 (02:20→20:05)
[2017-12-29] MEDS: ALBUTEROL SULF 0.083% NEB SOLN 3 ML NEB NEB SCH ×6 (02:20→23:00)
[2017-12-29] MEDS: HYDRALAZINE HCL 25 MG TAB PO SCH ×4 (06:00→23:24)
[2017-12-29] MEDS: FLUTICASONE PROPIONATE NASAL SPRAY NS SCH ×2 (08:15→23:27)
[2017-12-29] MEDS: GABAPENTIN 300 MG CAP PO SCH ×4 (09:00→21:30)
[2017-12-29] MEDS: LACTOBACILLUS ACIDOPHILUS CAPSULE PO SCH (09:00)
[2017-12-29] MEDS: ATENOLOL 50 MG TAB PO SCH (09:00)
[2017-12-29] MEDS: PANTOPRAZOLE SOD 40 MG TABEC PO SCH (09:00)
[2017-12-29] MEDS: BENZONATATE 100 MG CAP PO SCH ×3 (09:00→21:30)
[2017-12-29] MEDS: FERROUS SULFATE 325 MG TAB PO SCH ×2 (09:00→15:10)
[2017-12-29] MEDS: DOCUSATE SODIUM 100 MG CAP PO SCH (09:00)
[2017-12-29] MEDS: ASPIRIN 81 MG CHEW TAB PO SCH (09:19)
[2017-12-29] MEDS: ACETAMINOPHEN/CODEINE 300MG - 30MG TAB PO PRN ×2 (09:55→19:30)
--- NOTE | 2017-12-29 12:51 | Electroencephalogram ---
DATE OF STUDY: December 29, 2017 REASON FOR EEG: Patient confused and disoriented with generalized weakness. The EEG is awake and drowsy EEG. The background activity is 9 to 10 cycles per second Hertz in the posterior region, which is suppressed by eyes open. Moderate amount of low amplitude, fast activity is seen both in anterior and central leads throughout the recording. Record is contaminated by excessive muscle artifact. Photic stimulation showed no activation. Record showed no evidence of focal or paroxysmal activity. IMPRESSION: Awake and drowsy electroencephalogram within normal limits. No evidence of epileptogenic activity. Job#: [id number]
--- NOTE | 2017-12-29 14:02 | Consultation ---
DATE OF CONSULTATION: December 29, 2017, at 11:30 in the morning. NEUROLOGICAL CONSULTATION A patient of Dr. Karl Pierre. REASON FOR CONSULTATION: Altered mental status. HISTORY OF PRESENT ILLNESS: This is an 87-year-old female who was at [facility] when she developed some confusion, disorientation, lack of responsiveness, reason for which she was brought to the emergency room. Patient has been just recently discharged, being treated for a urinary tract infection. Apparently the blood showed positive for E. coli and she has been on antibiotic. PAST HISTORY: Urinary infection, peripheral neuropathy, hypertension, syncopal spell, dehydration. PAST SURGICAL: None. ALLERGIES: NONE KNOWN. SOCIAL HISTORY: Patient lives in [email or web address] She denies alcohol. She denies cigarettes. MEDICATION: Has been reviewed electronically. REVIEW OF SYSTEMS: All 12 steps negative except what is described above. GENERAL PHYSICAL EXAMINATION VITAL SIGNS: The day of this examination, blood pressure is 128/61, pulse 75, afebrile. LUNGS: Clear to auscultation. HEART: Regular sinus rhythm. There was no murmur. ABDOMEN: Soft. No tenderness. No organomegaly. MUSCULOSKELETAL/LOWER EXTREMITIES: No edema, no cyanosis, no clubbing. NEUROLOGIC Mental status: The patient is alert. She is oriented x3. She knows she is in the hospital. She knows the name of the hospital. Speech is clear, no dysarthria or dysphagia. Cranial nerves: Pupils were both equal and reactive. External ocular movements were full. Visual field on confrontation was grossly normal. No facial weakness. Facial sensation normal. Tongue protrudes midline. Palatal movements normal. Motor power: Patient is able to elevate both arms and legs against gravity without any difficulty. There is no evidence of gross weakness in either proximal or distal muscles of either of both upper or lower extremities. Deep tendon reflexes: Triceps, biceps, radials 1+. Knee jerks and ankle jerks were absent bilaterally. Plantar stimulation is down bilaterally. Sensory examination: Vibration is decreased up to the ankles. Sensory examination shows mild hyperesthesia in a stocking distribution. Coordination: Fddqel-in-llev is normal. Gait: Has been deferred. HEAD: Normocephalic. NECK: Supple. Carotid pulsations were present bilaterally. There were bilateral systolic bruits. LABORATORY WORKUP: CBC shows a white count of 5018 with a hemoglobin 9.3, hematocrit 30.5, platelets 267. Chemistry: Sodium 138, potassium 3.7, BUN 8, creatinine 0.74, estimated GFR greater than 60. Liver enzymes are all normal. Urinalysis done on admission: WBCs 6-10, bacteria none. Blood culture negative. Urine culture pending. CT scan of the brain shows no acute pathology, chronic small-vessel disease seen bilaterally. Carotid Doppler shows no significant stenosis bilaterally. IMPRESSION 1. Brief episode of confusion and disorientation, resolved. Patient is alert, oriented x3. 2. Hypertension. 3. Peripheral neuropathy, unspecified. 4. Urinary tract infection, on antibiotic. 5. Normocytic anemia. 6. Electroencephalogram shows no evidence of focal or epileptiform activity. Job#: [id number]
[2017-12-29] MEDS: ACETAMINOPHEN 325 MG TAB PO PRN (15:10)
[2017-12-29] MEDS: ENOXAPARIN SOD INJ 40 MG/0.4 ML SYR SC SCH (15:10)
[2017-12-29] MEDS: CEFTRIAXONE SOD 1 GM VIAL IV SCH (21:30)
[2017-12-29] MEDS: AZITHROMYCIN 500MG/NS 250 ML 250 ML IV SCH (21:30)
[2017-12-30] VITALS (9 sets, daily range): BP systolic 137–167; BP diastolic 63–74
[2017-12-30] MEDS: CYCLOBENZAPRINE HCL 10 MG TAB PO PRN (00:15)
[2017-12-30] MEDS: IPRATROPIUM BROMIDE 0.02% 2.5 ML NEB NEB SCH ×5 (01:00→23:55)
[2017-12-30] MEDS: ACETAMINOPHEN/CODEINE 300MG - 30MG TAB PO PRN ×4 (02:13→23:00)
[2017-12-30] MEDS: ALBUTEROL SULF 0.083% NEB SOLN 3 ML NEB NEB SCH ×5 (03:00→23:55)
[2017-12-30] MEDS: HYDRALAZINE HCL 25 MG TAB PO SCH ×3 (06:02→23:16)
[2017-12-30] MEDS ORDERED: HYDRALAZINE HCL25 MG PO (06:07)
[2017-12-30] MEDS ORDERED: TESSALON PERLE100 MG PO (06:07)
[2017-12-30] MEDS ORDERED: Fluticasone Propionate NS (06:07)
[2017-12-30] MEDS ORDERED: SENNA LAX8.6 MG PO (06:07)
[2017-12-30] MEDS ORDERED: AZITHROMYC200 MG/5 M PO (06:07)
[2017-12-30] MEDS ORDERED: CYCLOBENZAPRINE10 MG PO (06:07)
--- NOTE | 2017-12-30 06:54 | Progress Note ---
DATE: December 29, 2017 TIME: 6 a.m. OVERNIGHT: Feeling a little better. REVIEW OF SYSTEMS: Denies any dizziness. PHYSICAL EXAMINATION VITAL SIGNS: Reviewed. GENERAL: A tired-appearing woman resting in bed. HEENT: Anicteric. CARDIOVASCULAR: Normal S1 and S2. LUNGS: Moderate breath sounds. ABDOMEN: Soft and nontender. EXTREMITIES: No edema. SKIN: Dry. PSYCHIATRIC: Flat affect. LABS: Reviewed. MEDICATIONS: Reviewed. ASSESSMENT: An 87-year-old woman with: 1. Bacteremia with Escherichia coli. 2. Hypertensive urgency. 3. Urinary tract infection with Escherichia coli. 4. Acute alveolitis. 5. Normocytic anemia. 6. Physical deconditioning. 7. Constipation. PLAN 1. Continue antibiotics. 2. All cultures here are negative at this location. 3. She needs a total of 14 days of IV antibiotics. This is day #3 of 14. 4. Continue physical therapy. 5. Continue treatment for alveolitis. 6. Follow up EEG. 7. Discharge planning. Job#: [id number] [place]
--- NOTE | 2017-12-30 06:59 | Discharge Summary ---
PRINCIPAL DIAGNOSES 1. Bacteremia with Escherichia coli. 2. Hypertensive urgency. 3. Urinary tract infection with Escherichia coli. 4. Acute alveolitis. 5. Normocytic anemia. 6. Physical deconditioning. 7. Constipation. SECONDARY DIAGNOSIS: Physical deconditioning. CHIEF COMPLAINT: Not feeling well and altered state. HISTORY OF PRESENT ILLNESS: An 87-year-old woman developing confusion. Please refer to the H and P for further details. HOSPITAL COURSE: The patient was found to have bacteremia on last admission, and received incomplete treatment for E. coli in the urine, but diagnosis of bacteremia was not known. Therefore, the patient will need about 14 days of IV antibiotics. All cultures remained negative during this hospitalization. She had an EEG which was negative. The patient is doing better, but tired and weak. She needs to continue physical therapy at the skilled facility. She was also found to have acute alveolitis and treated with azithromycin. She is currently appropriate for discharge. Will follow up. DISCHARGE MEDICATIONS: Per electronic medical records. FOLLOWUP: Primary care doctor in 1 week. Medical team at the skilled facility. CONDITION ON DISCHARGE: Stable and improved. DISCHARGE LOCATION: Skilled facility. CIERA DICKSON MD Job#: [id number] [place]
[2017-12-30] MEDS: SENNOSIDES 8.6 MG TAB PO SCH ×2 (07:54→23:16)
[2017-12-30] MEDS: LACTOBACILLUS ACIDOPHILUS CAPSULE PO SCH (07:55)
[2017-12-30] MEDS: BENZONATATE 100 MG CAP PO SCH ×3 (07:55→23:16)
[2017-12-30] MEDS: DOCUSATE SODIUM 100 MG CAP PO SCH (07:55)
[2017-12-30] MEDS: FLUTICASONE PROPIONATE NASAL SPRAY NS SCH ×2 (07:55→23:26)
[2017-12-30] MEDS: ASPIRIN 81 MG CHEW TAB PO SCH (07:55)
[2017-12-30] MEDS: FERROUS SULFATE 325 MG TAB PO SCH ×2 (07:55→17:09)
[2017-12-30] MEDS: GABAPENTIN 300 MG CAP PO SCH ×4 (07:55→23:16)
[2017-12-30] MEDS: PANTOPRAZOLE SOD 40 MG TABEC PO SCH (07:55)
[2017-12-30] MEDS: ATENOLOL 50 MG TAB PO SCH (07:55)
[2017-12-30] MEDS: SODIUM CHLORIDE 0.9% 1000ML 1,000 ML IV SCH (07:56)
--- NOTE | 2017-12-30 14:14 | Diagnostic Imaging Report ---
PROCEDURE:CHEST 2 VIEWS TECHNIQUE:PA and lateral chest INDICATION:Pneumonia COMPARISON:[facility], DX, CHEST 2 VIEWS, 12/26/2017, 19:36. Patients [facility], DX, CHEST SINGLE (PORTABLE), 12/27/2017, 11:35. FINDINGS: Small pleural effusions. Upper lobe predominant interstitial opacity (right greater than left) with mild superimposed airspace disease. Mild cardiomegaly. Normal central vasculature. Chronic fracture deformity of the right humeral head. CONCLUSION: Progressive bilateral interstitial opacity with small pleural effusions. Findings suggest worsening pulmonary edema. Right upper lobe alveolar opacities consistent with pneumonia in the appropriate clinical context. No cavitation. Dictated by: Jack Paniagua M.D. on 12/30/2017 at 14:15 Electronically approved by: Jack Paniagua M.D. on 12/30/2017 at 14:15
[2017-12-30] MEDS ORDERED: FUROSEMIDE INJ 10 MG/ML 2 ML VIAL IV ONE (15:00)
[2017-12-30 16:01] LABS: ANION GAP 9.8 mmol/L (8-16); BLOOD UREA NITROGEN 5 mg/dL (7-26); BUN/CREATININE RATIO 7 (6-25); CALCIUM 9.2 mg/dL (8.4-10.2); CARBON DIOXIDE 26 mmol/L (22-29); CHLORIDE 104 mmol/L (98-107); CREATININE, SERUM 0.68 mg/dL (0.57-1.11); EST GLOMERULAR FILTRATION RATE > 60 ML/MIN (60-); GLUCOSE 101 mg/dL (74-118); POTASSIUM 3.8 mmol/L (3.5-5.1); SODIUM 136 mmol/L (136-145)
[2017-12-30] MEDS: ENOXAPARIN SOD INJ 40 MG/0.4 ML SYR SC SCH (17:09)
[2017-12-30] MEDS ORDERED: SODIUM CHLORIDE 0.9% 250ML 250 ML ONE (22:30)
[2017-12-30] MEDS: CEFTRIAXONE SOD 1 GM VIAL IV SCH (23:15)
[2017-12-30] MEDS: AZITHROMYCIN 500MG/NS 250 ML 250 ML IV SCH (23:16)
[2017-12-31] VITALS (7 sets, daily range): BP systolic 125–154; BP diastolic 60–66
[2017-12-31] MEDS: ALBUTEROL SULF 0.083% NEB SOLN 3 ML NEB NEB SCH ×5 (03:10→23:00)
[2017-12-31] MEDS: FUROSEMIDE INJ 10 MG/ML 2 ML VIAL IV SCH ×2 (06:16→09:00)
[2017-12-31] MEDS: HYDRALAZINE HCL 25 MG TAB PO SCH ×3 (06:17→21:50)
[2017-12-31 07:33] LABS: ANION GAP 12.4 mmol/L (8-16); BLOOD UREA NITROGEN 6 mg/dL (7-26); BUN/CREATININE RATIO 8 (6-25); CALCIUM 9.4 mg/dL (8.4-10.2); CARBON DIOXIDE 30 mmol/L (22-29); CHLORIDE 98 mmol/L (98-107); CREATININE, SERUM 0.74 mg/dL (0.57-1.11); EST GLOMERULAR FILTRATION RATE > 60 ML/MIN (60-); GLUCOSE 96 mg/dL (74-118); POTASSIUM 3.4 mmol/L (3.5-5.1); SODIUM 137 mmol/L (136-145)
--- NOTE | 2017-12-31 07:51 | Progress Note ---
DATE: December 31, 2017 TIME: 7:22 a.m. OVERNIGHT: Chest x-ray suggesting early pneumonia. REVIEW OF SYSTEMS: Denies any dizziness. VITAL SIGNS: Reviewed. PHYSICAL EXAMINATION GENERAL: A tired-appearing woman resting in bed. HEENT: Anicteric. CARDIOVASCULAR: Normal S1 and S2. LUNGS: Mildly coarse breath sounds. ABDOMEN: Soft and nontender. EXTREMITIES: No edema. SKIN: Dry. PSYCHIATRIC: Flat affect. LABS: Reviewed. MEDICATIONS: Reviewed. ASSESSMENT: An 87-year-old woman. 1. Bacteremia with Escherichia coli. 2. Hypertensive urgency. 3. Urinary tract infection with Escherichia coli. 4. Acute alveolitis. 5. Normocytic anemia. 6. Physical deconditioning. 7. Constipation. 8. Healthcare-associated pneumonia, likely present on admission, associated with acute alveolitis. PLAN 1. Continue antibiotics. We will use Levaquin. 2. Continue IV ceftriaxone for bacteremia. This is day #6 of 14 for IV antibiotics with ceftriaxone for bacteremia. 3. Repeat cultures negative. 4. Partially occluded DVT after PICC placed at that site. We will remove the PICC line and place a central line on the other side of the body. Use Lovenox 40 q.12. 5. Renal function stable. Will continue Lasix and will use it daily at this point. 6. Once the central line is placed, the patient can be transitioned to the skilled facility on IV ceftriaxone, and we will use IV Levaquin. Job#: [id number]
[2017-12-31] MEDS: LEVOFLOXACIN 750MG/D5W 150ML 150 ML IV SCH (08:00)
[2017-12-31] MEDS: IPRATROPIUM BROMIDE 0.02% 2.5 ML NEB NEB SCH ×3 (08:40→19:52)
[2017-12-31] MEDS ORDERED: ENOXAPARIN SOD INJ 40 MG/0.4 ML SYR SC SCH ×3 (09:00)
[2017-12-31] MEDS: ACETAMINOPHEN/CODEINE 300MG - 30MG TAB PO PRN ×2 (09:35→19:55)
[2017-12-31] MEDS: GABAPENTIN 300 MG CAP PO SCH ×4 (09:41→21:49)
[2017-12-31] MEDS: SENNOSIDES 8.6 MG TAB PO SCH ×2 (09:41→21:49)
[2017-12-31] MEDS: ASPIRIN 81 MG CHEW TAB PO SCH (09:41)
[2017-12-31] MEDS: LACTOBACILLUS ACIDOPHILUS CAPSULE PO SCH (09:41)
[2017-12-31] MEDS: PANTOPRAZOLE SOD 40 MG TABEC PO SCH (09:41)
[2017-12-31] MEDS: FERROUS SULFATE 325 MG TAB PO SCH ×2 (09:41→17:32)
[2017-12-31] MEDS: DOCUSATE SODIUM 100 MG CAP PO SCH (09:41)
[2017-12-31] MEDS: BENZONATATE 100 MG CAP PO SCH ×3 (09:42→21:49)
[2017-12-31] MEDS: ATENOLOL 50 MG TAB PO SCH (09:42)
[2017-12-31] MEDS: FLUTICASONE PROPIONATE NASAL SPRAY NS SCH ×2 (11:05→21:49)
[2017-12-31] MEDS: ENOXAPARIN SOD INJ 60 MG/0.6 ML SYR SC SCH ×2 (11:05→21:50)
[2017-12-31] MEDS ORDERED: POTASSIUM CHLORIDE 20 MEQ TAB CR PO NR (13:30)
--- NOTE | 2017-12-31 13:35 | Diagnostic Imaging Report ---
PROCEDURE:ULTRASOUND GUIDANCE FOR VASCULAR ACCESS COMPARISON:None. INDICATIONS:Central Line Placement FINDINGS:The right internal jugular vein is noted to be patent. Ultrasound guidance was utilized for access for central line placement. There is an in-homogenous nodule in the right thyroid lobe-thyroid ultrasound would be of benefit. CONCLUSION: 1. Patent right internal jugular vein. 2. Successful ultrasound guidance for central line placement. 3. Right thyroid lobe nodule. Baldomero Schulz D.O. Dictated by: Baldomero Schulz D.O. on 12/31/2017 at 13:36 Electronically approved by: Baldomero Schulz D.O. on 12/31/2017 at 13:36
--- NOTE | 2017-12-31 13:40 | Diagnostic Imaging Report ---
PROCEDURE:NON-TUNNELLED CVC CATH PLACMNT COMPARISON:None. INDICATIONS: Patient with pneumonia in need of IV access. Left midline it is not functional. COMPLICATIONS: None MEDICATIONS: 1% Xylocaine. BLOOD LOSS: Less than 2 cc PROCEDURE: Ultrasound was utilized for venous access and puncture of the right internal jugular vein with a 21 gauge skinny needle. A 0.018 inch wire was then advanced through the needle followed by a micropuncture sheath. Through the micropuncture sheath a 0.035 inch Amplatz Super Stiff wire was advanced centrally under fluoroscopic guidance. Dilatation over the wire was accomplished and then a 7 [place] 15 cm long Arrow triple-lumen central line was placed. Tip is localized to the right atrium. Fluoroscopy time: 1.2 minutes Total dose: 3.47 mGy CONCLUSION: Successful placement of a right internal jugular non-tunneled central line. The line is okay for immediate use. Baldomero Schulz D.O. Dictated by: Baldomero Schulz D.O. on 12/31/2017 at 13:41 Electronically approved by: Baldomero Schulz D.O. on 12/31/2017 at 13:41
[2017-12-31] MEDS ORDERED: FENTANYL CITRATE/PF 100MCG/2 ML INJ ONE (14:13)
[2017-12-31] MEDS: CEFTRIAXONE SOD 1 GM VIAL IV SCH (21:49)
[2018-01-01] VITALS (7 sets, daily range): BP systolic 112–141; BP diastolic 56–62
[2018-01-01] MEDS: IPRATROPIUM BROMIDE 0.02% 2.5 ML NEB NEB SCH ×4 (01:00→19:20)
[2018-01-01] MEDS: ALBUTEROL SULF 0.083% NEB SOLN 3 ML NEB NEB SCH ×5 (03:00→19:20)
[2018-01-01] MEDS: ACETAMINOPHEN/CODEINE 300MG - 30MG TAB PO PRN ×3 (03:39→20:52)
[2018-01-01] MEDS: ACETAMINOPHEN 325 MG TAB PO PRN ×2 (04:40→16:30)
[2018-01-01] MEDS: HYDRALAZINE HCL 25 MG TAB PO SCH ×3 (05:25→21:53)
[2018-01-01 08:45] LABS: BASOPHILS % 0.3 % (0.0-1.0); EOSINOPHILS % 0.3 % (0.0-6.0); HEMATOCRIT 31.5 % (34.2-44.1); HEMOGLOBIN 9.6 g/dL (12.0-16.0); LYMPHOCYTES # (AUTO) 1.1 (1.0-3.2); LYMPHOCYTES % 16.1 % (18.0-39.1); MEAN CORPUSCULAR HGB CONC 30.5 g/dL (31-35); MEAN CORPUSCULAR VOLUME 88.5 fL (81-99); MONOCYTES # (AUTO) 0.9 (0.2-0.8); MONOCYTES % 13.3 % (4.4-11.3); NEUTROPHILS # (AUTO) 4.7 (2.1-6.9); NEUTROPHILS % 69.9 % (38.7-80.0); PLATELET COUNT 239 x10e3/uL (140-360); RED BLOOD COUNT 3.56 x10e6/uL (3.6-5.1); RED CELL DISTRIBUTION WIDTH 16.1 % (11.7-14.4)
[2018-01-01] MEDS: ATENOLOL 50 MG TAB PO SCH (09:00)
[2018-01-01] MEDS: FUROSEMIDE INJ 10 MG/ML 2 ML VIAL IV SCH (09:00)
[2018-01-01 09:02] LABS: BLOOD UREA NITROGEN 9 mg/dL (7-26); BUN/CREATININE RATIO 11 (6-25); CALCIUM 9.8 mg/dL (8.4-10.2); CARBON DIOXIDE 29 mmol/L (22-29); CHLORIDE 94 mmol/L (98-107); CREATININE, SERUM 0.81 mg/dL (0.57-1.11); EST GLOMERULAR FILTRATION RATE > 60 ML/MIN (60-); GLUCOSE 106 mg/dL (74-118); SODIUM 133 mmol/L (136-145)
[2018-01-01] MEDS: FLUTICASONE PROPIONATE NASAL SPRAY NS SCH ×2 (09:30→20:51)
--- NOTE | 2018-01-01 09:34 | Diagnostic Imaging Report ---
PROCEDURE: Frontal and lateral views of the chest. COMPARISON: Chest 2 views 12/30/2017. INDICATIONS: PNEUMONIA FINDINGS: Lines/tubes: Right internal jugular temporary central venous catheter with tip projecting over the expected region of the right atrium. Lungs: Continued airspace opacity in right upper lobe. The left lung is clear. Pleura: There is no pleural effusion or pneumothorax. Heart and mediastinum: The heart and the mediastinum are normal. Bones: No acute bony abnormality. Degenerative changes of the thoracic spine. IMPRESSION: Continued airspace opacity in the right upper lobe. Dictated by: Ignacio Jordan M.D. on 01/01/2018 at 9:35 Electronically approved by: Ignacio Jordan M.D. on 01/01/2018 at 9:35
[2018-01-01] MEDS: FERROUS SULFATE 325 MG TAB PO SCH ×2 (09:44→17:57)
[2018-01-01] MEDS: ASPIRIN 81 MG CHEW TAB PO SCH (09:44)
[2018-01-01] MEDS: DOCUSATE SODIUM 100 MG CAP PO SCH (09:44)
[2018-01-01] MEDS: VANCOMYCIN 1GM/NS 250 ML 250 ML IV SCH (09:44)
[2018-01-01] MEDS: GABAPENTIN 300 MG CAP PO SCH ×4 (09:44→20:51)
[2018-01-01] MEDS: BENZONATATE 100 MG CAP PO SCH ×3 (09:44→20:51)
[2018-01-01] MEDS: PANTOPRAZOLE SOD 40 MG TABEC PO SCH (09:44)
[2018-01-01] MEDS: SENNOSIDES 8.6 MG TAB PO SCH ×2 (09:44→20:51)
[2018-01-01] MEDS: LACTOBACILLUS ACIDOPHILUS CAPSULE PO SCH (09:44)
[2018-01-01] MEDS: LEVOFLOXACIN 750MG/D5W 150ML 150 ML IV SCH (10:00)
[2018-01-01] MEDS: ENOXAPARIN SOD INJ 60 MG/0.6 ML SYR SC SCH ×2 (12:08→20:52)
[2018-01-01] MEDS: CEFTRIAXONE SOD 1 GM VIAL IV SCH (20:51)
[2018-01-02] VITALS: BP 134/61
[2018-01-02] MEDS: IPRATROPIUM BROMIDE 0.02% 2.5 ML NEB NEB SCH ×2 (00:15→07:00)
[2018-01-02] MEDS: ALBUTEROL SULF 0.083% NEB SOLN 3 ML NEB NEB SCH ×4 (00:15→11:00)
[2018-01-02] MEDS: ACETAMINOPHEN 325 MG TAB PO PRN (02:09)
[2018-01-02 04:00] VITALS: BP 129/57
[2018-01-02] MEDS: HYDRALAZINE HCL 25 MG TAB PO SCH ×2 (05:35→14:00)
[2018-01-02] MEDS: ACETAMINOPHEN/CODEINE 300MG - 30MG TAB PO PRN ×2 (05:35→12:25)
[2018-01-02 07:25] VITALS: BP 115/58
[2018-01-02] MEDS ORDERED: MAGNESIUM HYDROXIDE 30 ML UDC PO PRN (07:30)
[2018-01-02] MEDS ORDERED: CHLORASEPTIC SPRAY 177 ML BTL MM PRN (07:45)
[2018-01-02 08:00] VITALS: BP 115/58
[2018-01-02] MEDS: LEVOFLOXACIN 750MG/D5W 150ML 150 ML IV SCH (08:00)
--- NOTE | 2018-01-02 08:37 | Progress Note ---
DATE: January 01, 2018 TIME: 7:30 a.m. OVERNIGHT: Feeling a little better. REVIEW OF SYSTEMS: Denies any dizziness. PHYSICAL EXAMINATION VITAL SIGNS: Reviewed. GENERAL: A tired-appearing woman resting in bed. HEENT: Anicteric. CARDIOVASCULAR: Normal S1 and S2. LUNGS: Mildly coarse breath sounds. ABDOMEN: Soft, nontender and nondistended. EXTREMITIES: No edema. SKIN: Dry. PSYCHIATRIC: Flat affect. LABS: Reviewed. MEDICATIONS: Reviewed. ASSESSMENT: An 87-year-old woman with: 1. Bacteremia with Escherichia coli. 2. Hypertensive urgency. 3. Urinary tract infection with Escherichia coli. 4. Alveolitis/early pneumonia. 5. Physical deconditioning. 6. Normocytic anemia. 7. Constipation. PLAN 1. Continue Levaquin and azithromycin. This is day #7 of 14 for IV antibiotics for bacteremia. 2. Continue Lovenox dose q.12 h. for partially occluded DVT at the old PICC line site. 3. Continue physical therapy. 4. Discharge planning. Job#: [id number] [place]
--- NOTE | 2018-01-02 08:47 | Progress Note ---
DATE: January 02, 2018 TIME: 8:15 a.m. OVERNIGHT: Sore throat. issues seemed to be improving. REVIEW OF SYSTEMS: Denies any dizziness, chest pain. PHYSICAL EXAMINATION: VITAL SIGNS: Reviewed. GENERAL APPEARANCE: Tired-appearing woman resting in bed. HEENT: Anicteric. CARDIOVASCULAR: Normal S1 and S2. LUNGS: She has mildly coarse breath sounds. ABDOMEN: Soft, nontender, nondistended. EXTREMITIES: No edema or calf tenderness. NEUROLOGICAL: Alert and oriented x3. LABS: Reviewed. MEDICATIONS: Reviewed. ASSESSMENT: An 87-year-old woman. 1. Bacteremia with Escherichia coli. 2. Healthcare-associated pneumonia/acute alveolitis. 3. Hypertensive urgency. 4. Urinary tract infection with Escherichia coli. 5. Normocytic anemia. 6. Physical deconditioning. 7. Constipation. PLAN: 1. Continue Levaquin and azithromycin. This is day #8 of 14 for IV antibiotics for bacteremia. 2. Repeat cultures negative. 3. Lovenox treatment dose for DVT that occurred at the PICC line, plan to discontinue use after a week. 4. Physical deconditioning, continue physical therapy. 5. Use Chloraseptic spray for the sore throat. 6. Discharge planning. Job#: [id number]
[2018-01-02] MEDS: FUROSEMIDE INJ 10 MG/ML 2 ML VIAL IV SCH (09:00)
[2018-01-02] MEDS: ATENOLOL 50 MG TAB PO SCH (09:00)
[2018-01-02] MEDS: DOCUSATE SODIUM 100 MG CAP PO SCH (09:46)
[2018-01-02] MEDS: BENZONATATE 100 MG CAP PO SCH (09:46)
[2018-01-02] MEDS: FERROUS SULFATE 325 MG TAB PO SCH (09:46)
[2018-01-02] MEDS: ENOXAPARIN SOD INJ 60 MG/0.6 ML SYR SC SCH (09:46)
[2018-01-02] MEDS: GABAPENTIN 300 MG CAP PO SCH ×2 (09:46→13:01)
[2018-01-02] MEDS: PANTOPRAZOLE SOD 40 MG TABEC PO SCH (09:46)
[2018-01-02] MEDS: ASPIRIN 81 MG CHEW TAB PO SCH (09:46)
[2018-01-02] MEDS: SENNOSIDES 8.6 MG TAB PO SCH (09:46)
[2018-01-02] MEDS: LACTOBACILLUS ACIDOPHILUS CAPSULE PO SCH (09:46)
[2018-01-02] MEDS: FLUTICASONE PROPIONATE NASAL SPRAY NS SCH (10:34)
[2018-01-02] MEDS: VANCOMYCIN 1GM/NS 250 ML 250 ML IV SCH (10:34)
[2018-01-02 12:00] VITALS: BP 128/62
== END 2018-01-02 15:20 | DRG 871 ==
LOC: ER 18:18 → ERHOLD 20:46 → MED/SURG3 21:40
PROVIDERS: ADMIT Internal Medicine; ATTEND Internal Medicine
PROC: 02HV33Z Insertion of Infusion Device into Superior Vena Cava, Percutaneous Approach (ICD-10-PCS; 2017-12-30)
PROC: 02H633Z Insertion of Infusion Device into Right Atrium, Percutaneous Approach (ICD-10-PCS; principal; 2017-12-31)
DX: R78.81 Bacteremia (principal); J18.9 Pneumonia, unspecified organism; G93.41 Metabolic encephalopathy; N39.0 Urinary tract infection, site not specified; T82.868A Thrombosis due to vascular prosthetic devices, implants and grafts, initial encounter; B96.20 Unspecified Escherichia coli [E. coli] as the cause of diseases classified elsewhere; D64.9 Anemia, unspecified; R53.81 Other malaise; G62.9 Polyneuropathy, unspecified; K59.00 Constipation, unspecified; Y95 Nosocomial condition; Y84.8 Other medical procedures as the cause of abnormal reaction of the patient, or of later complication, without mention of misadventure at the time of the procedure; Y92.239 Unspecified place in hospital as the place of occurrence of the external cause; I16.0 Hypertensive urgency
CPT/HCPCS: 36415; 36556; 70450; 71045; 71046; 74470; 76937; 77001; 80048; 80053; 81001; 82550; 82553; 82948; 84484; 85025; 87040; 93005; 93971; 94640; 95819; 96360; 96361; 96365; 96367; 96372; 97139; 99285; C1751; J0360; J0456; J0696; J1650; J1940; J3370; J7030; J7050

== ENCOUNTER → 2018-03-23 | Outpatient (CLI) | payer MEDICARE ==
[~2018-03-23] MED LIST changes: +AZITHROMYC200 MG/5 M PO; +COLACE100 MG PO; +CYCLOBENZAPRINE10 MG PO; +FERROUS SULFAT325 MG; +Fluticasone Propionate NS; +HYDRALAZINE HCL25 MG PO; +SENNA LAX8.6 MG PO; +TESSALON PERLE100 MG PO; +TYLENOL WITH C1 EACH PO
--- NOTE | 2018-03-23 10:55 | Diagnostic Imaging Report ---
PROCEDURE: X-RAY CHEST, TWO VIEWS COMPARISON: None. INDICATIONS: PNEUMONIA FOLLOW UP FINDINGS: The lungs remain hyperinflated with prominence of the interstitium, likely age-related fibrotic change. Right upper lobe airspace disease has resolved. No new consolidations. No pleural effusion or pneumothorax. Stable cardiomediastinal contour with tortuosity and atherosclerotic calcification of the thoracic aorta. No acute osseous abnormality. Unchanged severe anterior compression deformity of an upper thoracic vertebral body and posttraumatic deformity of the right humeral head. CONCLUSION: Resolved right upper lobe pneumonia. Persistent hyperinflation and interstitial opacities likely age-related fibrotic change. Dictated by: Patricio Santana M.D. on 03/23/2018 at 10:59 Electronically approved by: Patricio Santana M.D. on 03/23/2018 at 10:59
== END ==
LOC: RAD 09:28
PROVIDERS: ATTEND Family Medicine
DX: Z09 Encounter for follow-up examination after completed treatment for conditions other than malignant neoplasm (principal); J18.9 Pneumonia, unspecified organism
CPT/HCPCS: 71046

== ENCOUNTER 2018-06-15 09:27 | Observation (INO) | payer MEDICARE ==
[~2018-06-15] VITALS: Ht 170.2 cm; Wt 70.3 kg
[2018-06-15] MEDS ORDERED: PIPER-TAZ 3.375 GM 50 ML IV ONE (10:15)
[2018-06-15] MEDS ORDERED: SODIUM CHLORIDE 0.9% 1000ML 1,000 ML IV ONE (10:15)
--- NOTE | 2018-06-15 11:14 | Diagnostic Imaging Report ---
Examination: Single AP view of the chest. COMPARISON: 12/27/2017 INDICATION: Bladder pain, UTI DISCUSSION: Limited due to reverse lordotic positioning. Lungs remain hyperinflated. No focal airspace consolidation. Stable chronic appearing prominence of the interstitium, most notably in the apices. Trace left pleural effusion versus basal pleural thickening. Stable cardiomediastinal contour. Posttraumatic changes of the right shoulder girdle unchanged. Surgical clips project over the right upper quadrant, likely related to prior cholecystectomy. IMPRESSION: Trace left pleural effusion versus focal basal pleural thickening. Hyperinflation of the lungs with upper lobe predominant prominent interstitial markings, which may reflect age-related fibrotic changes. Signed by: Dr. Patricio Santana M.D. on 06/15/2018 11:08 AM
[2018-06-15 11:32] LABS: BILIRUBIN,URINE 1+ (NEGATIVE); CLARITY,URINE CLOUDY (CLEAR); COLOR,URINE YELLOW (YELLOW); KETONES,URINE TRACE (NEGATIVE); LEUKOCYTE ESTERASE ,URINE TRACE (NEGATIVE); NITRITE,URINE NEGATIVE (NEGATIVE); PROTEIN,URINE DIPSTICK 2+ (NEGATIVE); URINE UROBILINOGEN 0.2 mg/dL (0.2 - 1)
[2018-06-15 11:44] LABS: BASOPHILS % 0.2 % (0.0-1.0); HEMATOCRIT 37.2 % (34.2-44.1); LYMPHOCYTES # (AUTO) 0.6 (1.0-3.2); LYMPHOCYTES % 6.3 % (18.0-39.1); MEAN CORPUSCULAR HGB CONC 30.6 g/dL (31-35); MEAN CORPUSCULAR VOLUME 84.7 fL (81-99); MONOCYTES # (AUTO) 0.9 (0.2-0.8); MONOCYTES % 9.3 % (4.4-11.3); NEUTROPHILS # (AUTO) 7.9 (2.1-6.9); NEUTROPHILS % 83.9 % (38.7-80.0); PLATELET COUNT 167 x10e3/uL (140-360); RED BLOOD COUNT 4.39 x10e6/uL (3.6-5.1); RED CELL DISTRIBUTION WIDTH 13.7 % (11.7-14.4)
[2018-06-15 11:48] LABS: HEMOGLOBIN 11.4 g/dL (12.0-16.0)
[2018-06-15 11:54] LABS: WBC,URINE (MAN) 0-5 /HPF (0-5)
[2018-06-15 11:55] LABS: BACTERIA,URINE RARE /HPF; EPITHELIAL CELLS,URINE FEW /LPF
[2018-06-15 12:07] LABS: ALBUMIN 3.4 g/dL (3.5-5.0); ALBUMIN/GLOBULIN RATIO 0.9 (0.8-2.0); CALCIUM 10.1 mg/dL (8.4-10.2); CREATININE, SERUM 0.96 mg/dL (0.57-1.11)
[2018-06-15] MEDS ORDERED: ONDANSETRON HCL INJ 2 MG/ML VIAL IV PRN (13:15)
[2018-06-15] MEDS: SODIUM CHLORIDE 0.9% 1000ML 1,000 ML IV SCH (13:20)
[2018-06-15] MEDS ORDERED: GABAPENTIN300 MG PO (13:49)
[2018-06-15] MEDS ORDERED: TAMSULOSIN HCL0.4 MG PO (13:49)
[2018-06-15] MEDS ORDERED: AUGMENTIN 875-1 EACH PO (13:49)
[2018-06-15 14:20] VITALS: BP 137/66
[2018-06-15 14:52] VITALS: BP 137/66
[2018-06-15] MEDS: GABAPENTIN 300 MG CAP PO SCH ×2 (16:50→22:16)
[2018-06-15] MEDS ORDERED: ACETAMINOPHEN/CODEINE 300MG - 30MG TAB PO SCH (17:00)
--- NOTE | 2018-06-15 17:17 | History and Physical ---
PRIMARY CARE PHYSICIAN: Dr. Marshall Mann. CHIEF COMPLAINT: Burning urination and chills. HISTORY OF PRESENT ILLNESS: An 87-year-old woman with a history of urinary tract infection with E. coli, now developing burning urination, went to her primary care doctor who prescribed the Augmentin, but symptoms persist and now patient developed some chills; therefore, she came to the hospital, found to have urinary tract infection. She was admitted for further evaluation and management. PAST MEDICAL HISTORY: Bacteremia with E. coli, healthcare-associated pneumonia, acute alveolitis, hypertensive urgency, urinary tract infection with E. coli, normocytic anemia, physical deconditioning, constipation, acute kidney injury, peripheral neuropathy, hypertension, fall, syncope, dehydration. PAST SURGICAL HISTORY: None. ALLERGIES: PER ELECTRONIC MEDICAL RECORD. FAMILY AND SOCIAL HISTORY: Patient lives with the family, has been at [facility] in the past. No alcohol, illicits, or cigarettes. MEDICATIONS: Per electronic medical record. REVIEW OF SYSTEMS: Denies any dizziness, chest pain, shortness of breath. Denies any headache or vision changes. Denies any leg pain, back pain. PHYSICAL EXAMINATION VITAL SIGNS: Have been reviewed. GENERAL: A tired-appearing woman, resting in bed. HEENT: Anicteric. Pupils reactive to light. No oral lesions. CARDIOVASCULAR: Normal S1 and S2. LUNGS: Moderate breath sounds. ABDOMEN: Soft, nontender, and nondistended. EXTREMITIES: She has trace edema bilaterally. SKIN: Dry. PSYCHIATRIC: Flat affect. NEUROLOGIC: He is alert and oriented x3. LABS: Reviewed. MEDICATIONS: Reviewed. ASSESSMENT: This is an 87-year-old woman with 1. Urinary tract infection. 2. Dysuria. 3. Physical deconditioning. 4. Peripheral edema. 5. Hypertension. 6. Signs of sepsis with low grade fever, hypotension. 7. Tachycardia. 8. Normocytic anemia, mild. 9. Acute kidney injury. 10. Trace left pleural effusion. PLAN 1. Receive IV Zosyn and we will continue IV Zosyn. 2. Receiving fluids, we will reduce fluid rate, does have peripheral edema and small pleural effusion. Also, does have acute kidney injury. We will monitor I's and O's both closely. 3. We will get physical therapy consultation. 4. We will restart home medications. 5. We will hold amoxicillin and use IV Zosyn. 6. Use PPI. 7. Flomax for urinary issues in the past. 8. Monitor fluid status. 9. Use SCD for DVT prophylaxis. Job#: [id number] [place]
[2018-06-15 20:00] VITALS: BP 114/62
[2018-06-15 21:00] VITALS: BP 114/62
[2018-06-15] MEDS: PIPER-TAZ 3.375 GM 50 ML IV SCH (22:16)
[2018-06-16] VITALS (7 sets, daily range): BP systolic 111–166; BP diastolic 46–81
[2018-06-16] MEDS: ACETAMINOPHEN/CODEINE 300MG - 30MG TAB PO PRN ×3 (00:02→21:41)
[2018-06-16] MEDS: SODIUM CHLORIDE 0.9% 1000ML 1,000 ML IV SCH ×2 (02:05→21:40)
[2018-06-16] MEDS: PIPER-TAZ 3.375 GM 50 ML IV SCH ×3 (05:02→21:40)
[2018-06-16 05:05] LABS: BASOPHILS % 0.4 % (0.0-1.0); EOSINOPHILS # (AUTO) 0.1 (0.0-0.4); EOSINOPHILS % 1.1 % (0.0-6.0); HEMATOCRIT 32.8 % (34.2-44.1); HEMOGLOBIN 9.9 g/dL (12.0-16.0); LYMPHOCYTES # (AUTO) 1.1 (1.0-3.2); LYMPHOCYTES % 12.6 % (18.0-39.1); MEAN CORPUSCULAR HEMOGLOBIN 25.9 pg (28-32); MEAN CORPUSCULAR HGB CONC 30.2 g/dL (31-35); MEAN CORPUSCULAR VOLUME 85.9 fL (81-99); MONOCYTES % 11.8 % (4.4-11.3); NEUTROPHILS # (AUTO) 6.3 (2.1-6.9); NEUTROPHILS % 73.9 % (38.7-80.0); PLATELET COUNT 145 x10e3/uL (140-360); RED BLOOD COUNT 3.82 x10e6/uL (3.6-5.1)
[2018-06-16 05:36] LABS: ALANINE AMINOTRANSFERASE 7 IU/L (0-55); ALBUMIN 2.6 g/dL (3.5-5.0); ALBUMIN/GLOBULIN RATIO 0.8 (0.8-2.0); ALKALINE PHOSPHATASE 65 IU/L (40-150); ANION GAP 11.6 mmol/L (8-16); BLOOD UREA NITROGEN 13 mg/dL (7-26); BUN/CREATININE RATIO 16 (6-25); CALCIUM 9.3 mg/dL (8.4-10.2); CARBON DIOXIDE 27 mmol/L (22-29); CHLORIDE 105 mmol/L (98-107); CREATININE, SERUM 0.81 mg/dL (0.57-1.11); EST GLOMERULAR FILTRATION RATE > 60 ML/MIN (60-); GLUCOSE 87 mg/dL (74-118); POTASSIUM 3.6 mmol/L (3.5-5.1); SODIUM 140 mmol/L (136-145)
[2018-06-16] MEDS: DOCUSATE SODIUM 100 MG CAP PO SCH (08:45)
[2018-06-16] MEDS: TAMSULOSIN HCL 0.4 MG CAP PO SCH (08:45)
[2018-06-16] MEDS: GABAPENTIN 300 MG CAP PO SCH ×4 (08:45→21:40)
[2018-06-16] MEDS: ASPIRIN 81 MG CHEW TAB PO SCH (08:45)
[2018-06-16] MEDS: PANTOPRAZOLE SOD 40 MG TABEC PO SCH (08:45)
[2018-06-17] VITALS (7 sets, daily range): BP systolic 98–174; BP diastolic 46–97
[2018-06-17] MEDS: PIPER-TAZ 3.375 GM 50 ML IV SCH ×2 (05:49→14:00)
[2018-06-17] MEDS: ACETAMINOPHEN/CODEINE 300MG - 30MG TAB PO PRN (08:35)
[2018-06-17] MEDS: DOCUSATE SODIUM 100 MG CAP PO SCH (09:00)
[2018-06-17] MEDS: GABAPENTIN 300 MG CAP PO SCH ×2 (09:00→12:53)
[2018-06-17] MEDS: TAMSULOSIN HCL 0.4 MG CAP PO SCH (09:00)
[2018-06-17] MEDS: ASPIRIN 81 MG CHEW TAB PO SCH (09:00)
[2018-06-17] MEDS: PANTOPRAZOLE SOD 40 MG TABEC PO SCH (09:00)
[2018-06-17] MEDS: SODIUM CHLORIDE 0.9% 1000ML 1,000 ML IV SCH (11:51)
[2018-06-17] MEDS ORDERED: KEFLEX500 MG PO (15:56)
--- NOTE | 2018-06-22 20:20 | Progress Note ---
DATE: June 16, 2018 TIME: 8 a.m. OVERNIGHT: Feeling a little better. REVIEW OF SYSTEMS: Denies any dizziness, chest pain. Denies any fever, chills, sweats, nausea, vomiting, diarrhea. No leg pain, back pain. PHYSICAL EXAMINATION: VITAL SIGNS: Reviewed. GENERAL APPEARANCE: Tired-appearing woman resting in bed. HEENT: Anicteric. CARDIOVASCULAR: Normal S1 and S2. LUNGS: Moderate breath sounds. ABDOMEN: Soft, nontender, nondistended. EXTREMITIES: Trace edema. SKIN: Dry. PSYCHIATRIC: Flat affect. NEUROLOGICAL: Alert and oriented x3. LABS: Reviewed. MEDICATIONS: Reviewed. ASSESSMENT: An 87-year-old woman. 1. Urinary tract infection. 2. Dysuria. 3. Physical deconditioning. 4. Peripheral edema. 5. Hypertension. 6. Signs of sepsis. 7. Tachycardia. 8. Normocytic anemia, mild. 9. Acute kidney injury. 10. Trace left pleural effusion. PLAN: 1. Acute kidney injury is resolving. 2. Continue supportive care. 3. Cultures are negative to date. 4. Continue with IV Zosyn. 5. Continue other medication regimen. 6. Discharge planning. Job#: [id number]
--- NOTE | 2018-06-22 20:37 | Discharge Summary ---
PRINCIPAL DIAGNOSES: 1. Urinary tract infection. 2. Dysuria. 3. Physical deconditioning. 4. Peripheral edema. 5. Hypertension. 6. Signs of sepsis present on admission. 7. Acute kidney injury. 8. Trace left pleural effusion. SECONDARY DIAGNOSIS: Hypertension. CHIEF COMPLAINT AND HISTORY OF PRESENT ILLNESS: Please refer to the H and P. HOSPITAL COURSE: Patient found to have urinary tract infection, treated with IV Zosyn. Cultures remained negative. She had peripheral edema, which improved. She had acute kidney injury, which was also improved. Patient received physical therapy, did well, subsequently transitioned home for further care. DISCHARGE MEDICATIONS: Per electronic medical record. FOLLOWUP: With primary care doctor in 1 week. CONDITION ON DISCHARGE: Stable and improving. DISCHARGE LOCATION: Home. CIERA DICKSON MD Job#: [id number]
== END 2018-06-17 17:50 | disposition home or self-care (01) ==
LOC: ER 09:27 → ERHOLD 13:04 → MED/SURG2 14:19
PROVIDERS: ADMIT Internal Medicine; ATTEND Internal Medicine
DX: A41.9 Sepsis, unspecified organism (principal); N30.00 Acute cystitis without hematuria; R53.81 Other malaise; I10 Essential (primary) hypertension; D64.9 Anemia, unspecified; N17.9 Acute kidney failure, unspecified; J90 Pleural effusion, not elsewhere classified; G62.9 Polyneuropathy, unspecified; Z87.440 Personal history of urinary (tract) infections
CPT/HCPCS: 36415 ×2; 71045; 80053 ×2; 81001; 83605; 84145; 85025 ×2; 87040; 87086; 87400; 93005; 97116 ×2; 97161; 99284; G0378 ×3; G8978; G8979; J2543 ×3; J7030 ×2; S0164 ×2

== ENCOUNTER → 2019-01-06 | Day surgery (SDC) | payer MEDICARE ==
[~2019-01-06] MED LIST changes: +ALENDRONATE SOD70 MG PO; +ATENOLOL50 MG; +AUGMENTIN 875-1 EACH PO; +BREO; +CEFDINIR250 MG/5 M; +FUROSEMIDE40 MG PO; +GABAPENTIN300 MG PO; +KEFLEX500 MG PO; +LOSARTAN POTASS25 MG; +POTASSIUM CHLO10 ME1 PO; +PROPOFOL IV EMULSION 10 MG/ML 20 ML VIAL ONE; +TAMSULOSIN HCL0.4 MG PO; +VITAMIN D400 UNIT PO
[2019-01-06 12:00] VITALS: BP 140/68
== END | disposition home or self-care (01) ==
LOC: OR 09:15
PROVIDERS: ATTEND Internal Medicine Gastroenterology
DX: D64.9 Anemia, unspecified (principal); K57.30 Diverticulosis of large intestine without perforation or abscess without bleeding; K59.00 Constipation, unspecified; K31.819 Angiodysplasia of stomach and duodenum without bleeding; K55.20 Angiodysplasia of colon without hemorrhage; K44.9 Diaphragmatic hernia without obstruction or gangrene; K21.9 Gastro-esophageal reflux disease without esophagitis; Z87.891 Personal history of nicotine dependence; I10 Essential (primary) hypertension; Z68.1 Body mass index [BMI] 19.9 or less, adult; J44.9 Chronic obstructive pulmonary disease, unspecified; K57.32 Diverticulitis of large intestine without perforation or abscess without bleeding; Z86.718 Personal history of other venous thrombosis and embolism; Z01.810 Encounter for preprocedural cardiovascular examination; Z01.812 Encounter for preprocedural laboratory examination; Z91.048 Other nonmedicinal substance allergy status
CPT/HCPCS: 43239; 43255; 93005; J2704